=== PATIENT | male | born 1945 | race Caucasian/White ===

== ENCOUNTER 2016-08-02 15:52 | Inpatient (IN) ==
--- NOTE | 2016-08-02 16:08 | Emergency Department Note ---
Disposition Clinical Impression: DVT (deep venous thrombosis), Closed tibia fracture, Diabetes mellitus, Complete immobility due to severe physical disability or frailty Disposition: Admitted As Inpatient Condition: Fair Referrals: Unassigned,Provider [Non-Partnered Physician] - Forms: ED Satisfaction Letter Time of Disposition: 19:11 Fall HPI - General Chief Complaint: ED Fall Stated Complaint: Fall Time Seen by Provider: 08/02/16 15:55 Source: patient, EMS Mode of arrival: EMS Limitations: physical limitation Nursing Notes Reviewed: Yes Vital Signs Reviewed: Yes - History of Present Illness HPI Narrative: This is a 70-year-old male who had a fall out of bed a couple days ago. Patient states he injured his leg but he did not think it was broken so he did not come in. Patient is not a great historian but states he had no other injury. There is an obvious deformity to his left lower extremity with swelling present. Patient denies any head injury or loss of consciousness. Patient does not think he is on any blood thinners but he is not sure. Patient denies any neck or back pain. Patient's not sure how he fell out of bed. Patient states his niece lives with him but he has no other help at home. Pt Subjective Complaint: fall Onset (ago): day(s) (2) Fall From: out of bed Fall Witnessed: no Place Fall Occurred: home Loss of Consciousness: none Prolonged Down Time?: unclear - Related Data Home Medications Medication Instructions Recorded Confirmed Allopurinol [Zyloprim 300 MG] 300 mg PO DAILY 10/06/15 10/06/15 Cholecalciferol (Vitamin D3) 5,000 unit PO DAILY 10/06/15 10/06/15 [Vitamin D3] Citalopram [CeleXA] 20 mg PO HS 10/06/15 10/06/15 Furosemide [Lasix] 40 mg PO DAILY 10/06/15 10/06/15 Lisinopril [Zestril] 5 mg PO DAILY 10/06/15 10/06/15 Meclizine HCl [Verticalm] 25 mg PO DAILY 10/06/15 10/06/15 Potassium Chloride [K-Tab ER] 10 meq PO DAILY 10/06/15 10/06/15 Ranitidine HCl 150 mg PO BID 10/06/15 10/06/15 Simvastatin [Zocor] 40 mg PO HS 10/06/15 10/06/15 Alendronate Sodium [Fosamax] 08/02/16 Mupirocin Calcium [Bactroban] 15 gm TP 08/02/16 Pantoprazole Sodium [Protonix] 08/02/16 Previous Rx's Medication Instructions Recorded Clopidogrel Bisulfate [Plavix] 75 mg PO DAILY #30 tablet 10/08/15 Allergies Allergy/AdvReac Type Severity Reaction Status Date / Time morphine Allergy Rash Verified 08/02/16 16:55 Penicillins Allergy Rash Verified 10/06/15 19:04 All systems ED: reviewed and negative except as stated. Constitutional: Denies: fever, chills, weakness, weight change Eyes: Denies: eye pain, eye discharge, vision change ENT ED: Denies: ear pain, throat pain, dental pain, hearing loss, epistaxis, congestion, dysphagia Cardiovascular: Reports: edema (LLE). Denies: chest pain, palpitations, dyspnea on exertion, syncope Respiratory: Denies: cough, dyspnea, wheezes, hemoptysis, stridor Gastrointestinal: Denies: abdominal pain, nausea, vomiting, diarrhea, constipation, hematemesis, melena, hematochezia Genitourinary: Denies: urgency, dysuria, frequency, hematuria Musculoskeletal: Reports: arthralgia (LLE pain, swelling). Denies: back pain, neck pain, myalgia Integumentary: Reports: other (bruising to LLE). Denies: rash, abrasion, lesions Neurological: Denies: headache, weakness, numbness, paresthesias, confusion, abnormal gait, vertigo Psychiatric: Denies: anxiety, depression, suicidal thoughts, homicidal thoughts , auditory hallucinations, visual hallucinations Endocrine: Denies: fatigue Hematological/Lymphatic: Denies: easy bleeding, easy bruising Allergic/Immunologic: Denies: facial swelling, urticaria Fall PMH - Past Medical History Medical history: Reports: arthritis, COPD, diabetes, GERD, hyperlipidemia, hypertension, osteoporosis, other Surgical history: Reports: arthroscopy, knee replacement, orthopedic, other Psychiatric history: Reports: no psych history - Social History Smoking Status: Former smoker Alcohol use: Reports: none Drug use: Reports: none Physical Exam - General Limitations: physical limitation General appearance: alert, in no apparent distress, obese - Head Head exam: atraumatic, normocephalic, normal inspection - Eye Eye exam: Present: normal appearance, PERRL, EOMI - ENT ENT exam: normal exam, normal oropharynx, mucous membranes moist - Neck Neck exam: Present: normal inspection, full ROM, trachea midline. Absent: tenderness - Chest Chest inspection: Present: normal inspection, symmetric chest wall rise - Respiratory Respiratory exam: Present: normal lung sounds bilaterally - Cardiovascular Cardiovascular exam: Present: regular rate, normal rhythm, normal heart sounds - Abdominal Exam Abdominal exam: Present: soft, Non-Tender - Extremities Exam Extremities exam: Present: tenderness (LLE, with edema to that leg) - Expanded Lower Extremity Exam Lower leg exam: Present: tenderness (L), swelling (L), ecchymosis (L), deformity (L) Ankle exam: Present: tenderness (L), swelling (L) - Back Exam Back exam: Present: normal inspection, full ROM. Absent: tenderness - Neurological Exam Neurological exam: Present: alert, oriented X3 - Psychiatric Psychiatric exam: Present: normal affect, normal mood - Skin Skin exam: Present: warm, dry, intact, normal color, other (ecchymosis to L lower leg) Course - Consultations Consultation #1: I spoke with Dr. Eula reid to splint pt and admit to hospitalist jeanette with lovenox. Time: 18:56 Consultation #2: I spoke with Dr. West reid to admit. Time: 19:10 Vital Signs Temperature 98.5 F 08/02/16 15:54 Pulse Rate 99 08/02/16 15:54 Respiratory Rate 18 08/02/16 15:54 Blood Pressure 137/85 08/02/16 15:54 O2 Sat by Pulse Oximetry 95 08/02/16 15:54 Temperature 98.5 F 08/02/16 15:54 Pulse Rate 88 08/02/16 18:42 Respiratory Rate 16 08/02/16 18:42 Blood Pressure 150/107 08/02/16 18:42 O2 Sat by Pulse Oximetry 96 08/02/16 18:42 Oxygen Delivery Oxygen Delivery Room Air Fall - Medical Records Medical records reviewed: Yes I reviewed the patient's medical records. - Lab Data Lab results reviewed: Yes I reviewed the patient's lab results. Result diagrams: 08/02/16 16:58 08/02/16 16:58 Lab Results 08/02/16 08/02/16 08/02/16 Range/Units 16:58 16:58 16:58 WBC 7.9 (4.3-11.1) K/mcL RBC 4.17 L (4.19-5.50) M/mcL Hgb 13.0 (12.9-16.9) g/dL Hct 38.7 (37.5-50.1) % MCV 92.8 (83.0-100.0) fL MCH 31.2 (28.0-33.3) pg MCHC 33.6 (31.6-35.5) g/dL RDW 13.2 (11.5-14.5) % Plt Count 241 (140-400) K/mcL MPV 9.1 L (9.4-12.4) fL Immature Gran % 1.6 (0-4) % Seg Neutrophils % 69.6 % Lymphocytes % 18.0 % Monocytes % 8.7 % Eosinophils % 1.1 % Basophils % 1.0 % Neutrophils # 5.5 (1.6-8.9) K/mcL Lymphocytes # 1.4 (0.6-4.6) K/mcL Monocytes # 0.7 (0.0-1.3) K/mcL Eosinophils # 0.1 (0.0-0.6) K/mcL Basophils # 0.1 (0.0-0.2) K/mcL PT 12.7 H (9.4-12.1) Seconds INR 1.2 APTT 30.0 (26.0-36.0) Seconds Sodium 138 (136-145) mEq/L Potassium 3.0 L (3.5-4.5) mEq/L Chloride 99 (98-109) mEq/L Carbon Dioxide 31 H (19-29) mEq/L BUN 11 (8-26) mg/dL Creatinine 0.54 L (0.72-1.25) mg/dL Est GFR ( Amer) > 60 (> 60) Est GFR (Non-Af Amer) > 60 (> 60) BUN/Creatinine Ratio 20 (6-26) Glucose 223 H (70-99) mg/dL Calculated Osmolality 292 (280-300) Calcium 8.2 L (8.6-10.8) mg/dL Total Bilirubin 1.3 H (0.2-1.2) mg/dL Direct Bilirubin 0.7 H (0.0-0.5) mg/dL Indirect Bilirubin 0.6 (0.0-1.2) mg/dL AST 11 (5-34) Units/L ALT 8 (0-55) Units/L Alkaline Phosphatase 78 (38-126) Units/L Creatine Kinase (30-200) Units/L Troponin I (0-0.03) ng/mL B-Natriuretic Peptide (0-100) pg/mL Serum Total Protein 6.5 (6.0-8.3) g/dL Albumin 2.5 L (3.5-5.0) g/dL Globulin 4.0 H (2.4-3.5) g/dL Albumin/Globulin Ratio 0.6 L (1.1-2.2) TSH (0.350-4.840) mcIU/mL 08/02/16 08/02/16 08/02/16 Range/Units 16:58 16:58 16:58 WBC (4.3-11.1) K/mcL RBC (4.19-5.50) M/mcL Hgb (12.9-16.9) g/dL Hct (37.5-50.1) % MCV (83.0-100.0) fL MCH (28.0-33.3) pg MCHC (31.6-35.5) g/dL RDW (11.5-14.5) % Plt Count (140-400) K/mcL MPV (9.4-12.4) fL Immature Gran % (0-4) % Seg Neutrophils % % Lymphocytes % % Monocytes % % Eosinophils % % Basophils % % Neutrophils # (1.6-8.9) K/mcL Lymphocytes # (0.6-4.6) K/mcL Monocytes # (0.0-1.3) K/mcL Eosinophils # (0.0-0.6) K/mcL Basophils # (0.0-0.2) K/mcL PT (9.4-12.1) Seconds INR APTT (26.0-36.0) Seconds Sodium (136-145) mEq/L Potassium (3.5-4.5) mEq/L Chloride (98-109) mEq/L Carbon Dioxide (19-29) mEq/L BUN (8-26) mg/dL Creatinine (0.72-1.25) mg/dL Est GFR ( Amer) (> 60) Est GFR (Non-Af Amer) (> 60) BUN/Creatinine Ratio (6-26) Glucose (70-99) mg/dL Calculated Osmolality (280-300) Calcium (8.6-10.8) mg/dL Total Bilirubin (0.2-1.2) mg/dL Direct Bilirubin (0.0-0.5) mg/dL Indirect Bilirubin (0.0-1.2) mg/dL AST (5-34) Units/L ALT (0-55) Units/L Alkaline Phosphatase (38-126) Units/L Creatine Kinase 20 L (30-200) Units/L Troponin I 0.00 (0-0.03) ng/mL B-Natriuretic Peptide 17 (0-100) pg/mL Serum Total Protein (6.0-8.3) g/dL Albumin (3.5-5.0) g/dL Globulin (2.4-3.5) g/dL Albumin/Globulin Ratio (1.1-2.2) TSH 0.886 (0.350-4.840) mcIU/mL - Radiology Data Radiology results reviewed: Yes I reviewed the patient's radiology results. - EKG Data EKG attestation: Yes I reviewed and interpreted this EKG. EKG shows normal: sinus rhythm Rate: normal Rhythm: NSR [place]/QRS: normal Interpretation: nonspecific ST-T wave changes
[2016-08-02 17:19] LABS: Basophils # 0.1 K/mcL (0.0-0.2); Eosinophils # 0.1 K/mcL (0.0-0.6); Eosinophils % 1.1 %; Hematocrit 38.7 % (37.5-50.1); Immature Granulocytes % 1.6 % (0-4); Lymphocytes # 1.4 K/mcL (0.6-4.6); Mean Corpuscular HGB Conc 33.6 g/dL (31.6-35.5); Mean Corpuscular Hemoglobin 31.2 pg (28.0-33.3); Mean Corpuscular Volume 92.8 fL (83.0-100.0); Mean Platelet Volume 9.1 fL (9.4-12.4); Monocytes # 0.7 K/mcL (0.0-1.3); Monocytes % 8.7 %; Neutrophils # 5.5 K/mcL (1.6-8.9); Platelet Count 241 K/mcL (140-400); Red Blood Count 4.17 M/mcL (4.19-5.50); Red Cell Distribution Width 13.2 % (11.5-14.5); Segmented Neutrophils % 69.6 %
[2016-08-02 17:28] LABS: INR 1.2; Prothrombin Time 12.7 Seconds (9.4-12.1)
[2016-08-02 17:36] LABS: Alanine Aminotransferase 8 Units/L (0-55); Albumin 2.5 g/dL (3.5-5.0); Albumin/Globulin Ratio 0.6 (1.1-2.2); Alkaline Phosphatase 78 Units/L (38-126); Aspartate Amino Transferase 11 Units/L (5-34); BUN/Creatinine Ratio 20 (6-26); Bilirubin,Direct 0.7 mg/dL (0.0-0.5); Bilirubin,Indirect 0.6 mg/dL (0.0-1.2); Bilirubin,Total 1.3 mg/dL (0.2-1.2); Blood Urea Nitrogen 11 mg/dL (8-26); Calcium 8.2 mg/dL (8.6-10.8); Carbon Dioxide 31 mEq/L (19-29); Chloride 99 mEq/L (98-109); Glucose 223 mg/dL (70-99); Osmolality,Calculated 292 (280-300); Sodium 138 mEq/L (136-145); Total Protein 6.5 g/dL (6.0-8.3); eGFR For African Americans > 60 (> 60); eGFR For Non-African Americans > 60 (> 60)
[2016-08-02 17:57] LABS: Thyroid Stimulating Hormone 0.886 mcIU/mL (0.350-4.840)
[2016-08-02] MEDS ORDERED: *HR* Enoxaparin 150 MG/ML SYRINGE SQ STA (18:54)
[2016-08-02] MEDS ORDERED: Naloxone 0.4 MG/ML INJ IVP PRN (19:10)
[2016-08-02] MEDS ORDERED: Ondansetron 4 MG/2 ML VIAL IVP PRN (19:10)
[2016-08-02] MEDS ORDERED: *HR* HYDROcodone/Acet 5/325 mg TABLET PO PRN (19:10)
[2016-08-02] MEDS ORDERED: Dextrose Gel 15 GM PO PRN ×2 (19:12)
[2016-08-02] MEDS ORDERED: D5% in Water 1,000 ML IV PRN (19:12)
[2016-08-02] MEDS ORDERED: *HR* Dextrose 50 % in Water (Syg) 50 ML SYRINGE IVP PRN (19:12)
--- NOTE | 2016-08-02 21:29 | Internal Med History&Physical ---
Date of Encounter: 08/02/16 Time of Encounter: 21:17 Assessment and Plan (1) Closed tibia fracture Current visit: Yes Status: Acute XRay showed mildly displaced and comminuted transverse fracture through the distal diaphysis Splinted. Pain control with Tylenol and [place]. Narcan when necessary for respiratory depression Dr. Forde of orthopedics consulted and will see patient tomorrow. Patient morbidly obese, with HTN, HLD, type 2 diabetes, acute DVT. He is a moderate risk for pulmonary and cardiac event perioperatively. Qualifiers: Encounter type: initial encounter Tibia location: shaft Fracture morphology: comminuted Fracture alignment: displaced Laterality: left Qualified Code(s): S82.252A - Displaced comminuted fracture of shaft of left tibia, initial encounter for closed fracture (2) DVT (deep venous thrombosis) Current visit: Yes Status: Acute Lovenox 140mg SQ given, continue [id number]. Patient for potential surgery tomorrow for fractured tibia. Will need chronic anticoagulation Qualifiers: DVT location: lower extremity Affected thrombotic vein of extremity: popliteal Laterality: left Chronicity: acute Qualified Code(s): I82.432 - Acute embolism and thrombosis of left popliteal vein (3) Type 2 diabetes mellitus Current visit: Yes Status: Acute diabetic diet check blood glucose ACHS sliding scale correction dose insulin ACHS hypoglycemic protocol Qualifiers: Diabetes mellitus complication status: without complication Diabetes mellitus penitentiary insulin use: without intermodal truck driver use Qualified Code(s): E11.9 - Type 2 diabetes mellitus without complications (4) 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 Assistance from his niece. Now with left tibial fracture. PT/OT and social work consults (5) Hypokalemia Current visit: Yes Status: Acute potassium of 3.0 Patient on lasix 40mg daily and potassium supplement of 10mEq at home. ED gave 40mEq of PO potassium. Will increase his dose to 20mEq daily Recheck BMP in the morning. (6) Hypertension Current visit: No Status: Chronic continue home dose of lasix and lisinopril Qualifiers: Hypertension type: essential hypertension Qualified Code(s): I10 - Essential (primary) hypertension (7) Obesity (BMI 30-39.9) Current visit: No Status: Chronic Internal Medicine - H&P: HPI Chief complaint: Left leg pain Admitted From: Emergency Dept Plans for Post Hospital Care: Home History of present illness: Mr. Burch is a 70 year old male with history of hypertension, hyperlipidemia , type 2 diabetes, TIA, and left knee replacement who presented to the ED today with pain in his left leg after rolling out of bed 2 days ago. He is not believe his leg was broken which is why he did not come until today. He describes the pain as dull, throbbing, it has stays about the same since his fall. He does not ambulate at baseline uses a wheelchair and a lift chair per patient. He lives with his niece whose assists him. He denies hitting his head, however this ED did get a head CT which showed no acute intracranial abnormality. X-ray of the left leg showed mildly displaced and comminuted transverse fracture through the distal diaphysis of the tibia. Lower extremity Doppler revealed S superficial femoral vein and popliteal vein with acute thrombus. Evaluation was also significant for hypokalemia with potassium of 3.0 , and hyperglycemia with blood sugar of 223. Dr. Dunbar of orthopedics was consult to. Full dose Lovenox was administered for DVT. An oral potassium was given for hypokalemia. On exam the patient is resting comfortably alert and oriented 3 lungs sound clear bilaterally, heart with regular rate and rhythm. Left lower extremity splinted, sensation intact, capilary refill normal. The patients case was discussed with Dr. Armas and he agrees with the assessment and plan set forth. Past Med Surg Social Fam HX - Past Medical History Medical history: arthritis, cancer (prostate Cancer s/p radiation), COPD, diabetes, GERD, hyperlipidemia, hypertension, osteoporosis, TIA, other Psychiatric history: no psych history - Past Surgical History Surgical History: arthroscopy, knee replacement, orthopedic, other - Social History Smoking Status: Former smoker Smokeless Tobacco Status: No Alcohol use: none Drug use: none - Family History Mother Living Status: Hx Family Cardiac Disorders: Yes Hx Family Endocrine Disorder: Yes Hx Family Neurologic Disorders: Yes (TIA) Father Living Status: Hx Family Cardiac Disorders: Yes Sister Hx Family Cardiac Disorders: Yes (triple bypass) Hx Family Endocrine Disorder: Yes Hx Family Neurologic Disorders: Yes (CVA) Brother Living Status: Hx Family Cancer: Yes (Lung cancer) Internal Medicine - H&P: Meds Allopurinol [Zyloprim 300 MG] 300 mg PO DAILY 10/06/15 [History] Cholecalciferol (Vitamin D3) [Vitamin D3] 5,000 unit PO DAILY 10/06/15 [History] Citalopram [CeleXA] 20 mg PO HS 10/06/15 [History] Furosemide [Lasix] 40 mg PO DAILY 10/06/15 [History] Lisinopril [Zestril] 5 mg PO DAILY 10/06/15 [History] Meclizine HCl [Verticalm] 25 mg PO DAILY 10/06/15 [History] Potassium Chloride [K-Tab ER] 10 meq PO DAILY 10/06/15 [History] Ranitidine HCl 150 mg PO BID 10/06/15 [History] Simvastatin [Zocor] 40 mg PO HS 10/06/15 [History] Clopidogrel Bisulfate [Plavix] 75 mg PO DAILY #30 tablet 10/08/15 [Rx] Alendronate Sodium [Fosamax] 08/02/16 [History] Mupirocin Calcium [Bactroban] 15 gm TP 08/02/16 [History] Pantoprazole Sodium [Protonix] 08/02/16 [History] Allergies morphine Allergy (Verified 08/02/16 16:55) Rash Penicillins Allergy (Verified 10/06/15 19:04) Rash All Systems PM: A 10-system review of systems was performed and is negative for pertinent findings except as documented above in the HPI. - Constitutional Constitutional: no chills, no fever(s), no night sweats - EENT Eyes: no change in vision, no discharge, no pain, no photophobia Nose, mouth and throat: no dysphagia, no nasal discharge, no neck pain, no sore throat - Cardiovascular Cardiovascular ROS IM: no chest pain, no diaphoresis, no dyspnea, no lightheadedness, no palpitations, no syncope - Respiratory Respiratory: no cough, no dyspnea, no wheezing, no excessive phlegm production - Gastrointestinal Gastrointestinal: diarrhea (patient reports chronic diarrhea), no abdominal pain , no hematemesis, no hematochezia, no melena, no nausea, no vomiting - Musculoskeletal Musculoskeletal ROS IM: joint swelling (left knee and ankle), limited range of motion, no numbness, no tingling - Integumentary Integumentary IM: no rash, no unusual bruising - Neurological Neurological ROS: no confusion, no convulsions, no focal weakness, no numbness, no tingling, no tremor(s) - Hematologic/Lymphatic Hematologic/Lymphatic: no easy bruising - Constitutional Vitals: Temp Pulse Resp BP Pulse Ox 98.5 F 82 16 121/78 94 L 08/02/16 20:36 08/02/16 20:25 08/02/16 20:36 08/02/16 20:36 08/02/16 20:25 General appearance: Present: A&O X 3, morbidly obese, no acute distress - Head Head exam: Present: atraumatic, normocephalic - Eye Eye exam: Present: PERRL, conjuntiva pink, sclera anicteric Pupils: Present: PERRL - Neck Neck exam general surgery: Present: supple, trachea midline. Absent: lymphadenopathy - Respiratory Respiratory exam: Present: CTAB. Absent: accessory muscle use, rales, rhonchi, wheezes - Cardiovascular Cardiovascular exam: Present: RRR, +S1, +S2. Absent: diastolic murmur, gallop, rubs, systolic murmur - GI/Abdominal GI/Abdominal exam: Present: normal bowel sounds, soft, no peritoneal signs. Absent: distended, tenderness - Extremities Exam Extremities exam: Present: joint swelling (left knee and ankle), normal capillary refill, tenderness (left lower leg), warm, radial pulses palpable and symetrical. Absent: calf tenderness, cyanotic, pedal edema - Expanded Lower Extremities Exam Lower Leg exam: Present: deformity, ecchymosis, swelling, tenderness. Absent: full ROM Ankle exam: Present: ecchymosis, swelling, tenderness - Neurological Exam Neurological exam: Present: CN II-XII intact, oriented X3, no focal deficits. Absent: facial droop, speech deficit - Skin Skin exam: Present: dry, intact (except for skin tear on LUE) Internal Med - H&P Results - Labs CBC & Chem 7: 08/02/16 16:58 08/02/16 16:58
[2016-08-02] MEDS: Insulin LISPRO 300 UNITS/3 ML VIAL SQ SCH (22:40)
[2016-08-03 04:29] LABS: Bilirubin,Urine Small (Negative); Clarity,Urine Clear (Clear); Color,Urine Dark Yellow (Yellow); Glucose,Urine (UA) Normal (Normal); Ketones,Urine Negative (Negative); Specific Gravity,Urine 1.019 (1.010-1.025)
[2016-08-03 04:30] LABS: Blood,Urine Negative (Negative); Leukocyte Esterase,Urine Trace (Negative); Nitrite,Urine Negative (Negative); Protein,Urine Negative (Neg-Trace)
[2016-08-03 04:38] LABS: Bacteria,Urine Few per hpf (None-Few); WBC,Urine 0-3 per hpf (0-3)
[2016-08-03 04:55] LABS: Sodium 141 mEq/L (136-145)
[2016-08-03 04:56] LABS: Alanine Aminotransferase 6 Units/L (0-55); Albumin 2.4 g/dL (3.5-5.0); Albumin/Globulin Ratio 0.6 (1.1-2.2); Alkaline Phosphatase 69 Units/L (38-126); Aspartate Amino Transferase 12 Units/L (5-34); BUN/Creatinine Ratio 21 (6-26); Bilirubin,Total 1.3 mg/dL (0.2-1.2); Blood Urea Nitrogen 11 mg/dL (8-26); Calcium 8.4 mg/dL (8.6-10.8); Carbon Dioxide 31 mEq/L (19-29); Chloride 102 mEq/L (98-109); Globulin 3.7 g/dL (2.4-3.5); Glucose 150 mg/dL (70-99); Osmolality,Calculated 294 (280-300); Potassium 3.4 mEq/L (3.5-4.5); Total Protein 6.1 g/dL (6.0-8.3); eGFR For African Americans > 60 (> 60); eGFR For Non-African Americans > 60 (> 60)
[2016-08-03 05:04] LABS: Eosinophils # 0.1 K/mcL (0.0-0.6); Eosinophils % 1.9 %; Hematocrit 36.5 % (37.5-50.1); Hemoglobin 12.2 g/dL (12.9-16.9); Immature Granulocytes % 1.1 % (0-4); Lymphocytes # 1.5 K/mcL (0.6-4.6); Mean Corpuscular HGB Conc 33.4 g/dL (31.6-35.5); Mean Corpuscular Hemoglobin 31.4 pg (28.0-33.3); Mean Corpuscular Volume 94.1 fL (83.0-100.0); Mean Platelet Volume 9.5 fL (9.4-12.4); Monocytes # 0.8 K/mcL (0.0-1.3); Neutrophils # 4.4 K/mcL (1.6-8.9); Platelet Count 251 K/mcL (140-400); Red Blood Count 3.88 M/mcL (4.19-5.50); Red Cell Distribution Width 13.2 % (11.5-14.5); Segmented Neutrophils % 63.1 %
[2016-08-03 05:05] LABS: Basophils # 0.1 K/mcL (0.0-0.2); Basophils % 0.9 %
[2016-08-03] MEDS: *HR* Enoxaparin 150 MG/ML SYRINGE SQ SCH ×2 (05:53→17:09)
--- NOTE | 2016-08-03 07:39 | Orthopedic Consult Note ---
Date of Encounter: 08/03/16 Time of Encounter: 07:37 Assessment and Plan (1) Closed tibia fracture Current Visit: Yes Status: Blaise Arguello is a 70-year-old multiply medically comorbid male with a low-energy fall resulting in a minimally angulated distal tibial shaft fracture in the face of severe osteopenia as well as an acute DVT. My recommendation for the tibia fracture is for nonoperative management in the form of immobilization and nonweightbearing. He does not have a splint on at this point, and we will place one later today. He will require serial radiographic follow-up's. He can mobilize with therapy and get up to a chair when medically stable. DVT treatment per the hospitalist. Qualifiers: Encounter type: initial encounter Tibia location: shaft Fracture morphology: comminuted Fracture alignment: displaced Laterality: left Qualified Code(s): S82.252A - Displaced comminuted fracture of shaft of left tibia, initial encounter for closed fracture History of Present Illness HPI: Mr. Burch is a 70 year multiply medically comorbid male. He was admitted last night to the hospitalist after a fall from his bed. He sustained a distal tibial shaft fracture. I was consult to assist in the management of the patient. My evaluation this morning he is complaining of pain about a 3 out of 10 to the left distal calderón region. It is worse with movement. He denies any numbness or tingling or any other pain. He denies any headaches, neck pain, chest pain, abdominal pain, bilateral upper extremity pain, and right lower extremity pain. The patient indicates that he has been nonambulatory for the last 3 years after a left total knee replacement. He said that he never did any physical therapy afterwards and the knee fell into disuse. He lives at home with his niece and mostly sits in the chair. The patient denies any other associated signs or symptoms or modifying factors. Past Med Surg Social Fam HX - Past Medical History Medical history: arthritis, cancer (prostate Cancer s/p radiation), COPD, diabetes, GERD, hyperlipidemia, hypertension, osteoporosis, TIA, other Psychiatric history: no psych history - Past Surgical History Surgical History: arthroscopy, knee replacement, orthopedic, other - Social History Smoking Status: Former smoker Smokeless Tobacco Status: No Alcohol use: none Drug use: none - Family History Mother History Unknown: Yes Living Status: Hx Family Cardiac Disorders: Yes Hx Family Endocrine Disorder: Yes Hx Family Neurologic Disorders: Yes (TIA) Father History Unknown: Yes Living Status: Hx Family Cardiac Disorders: Yes Sister History Unknown: Yes Hx Family Cardiac Disorders: Yes (triple bypass) Hx Family Endocrine Disorder: Yes Hx Family Neurologic Disorders: Yes (CVA) Brother History Unknown: Yes Living Status: Hx Family Cancer: Yes (Lung cancer) Medications and Allergies Allopurinol [Zyloprim 300 MG] 300 mg PO DAILY 10/06/15 [History] Cholecalciferol (Vitamin D3) [Vitamin D3] 5,000 unit PO DAILY 10/06/15 [History] Citalopram [CeleXA] 20 mg PO HS 10/06/15 [History] Furosemide [Lasix] 40 mg PO DAILY 10/06/15 [History] Lisinopril [Zestril] 5 mg PO DAILY 10/06/15 [History] Meclizine HCl [Verticalm] 25 mg PO DAILY 10/06/15 [History] Potassium Chloride [K-Tab ER] 10 meq PO DAILY 10/06/15 [History] Ranitidine HCl 150 mg PO BID 10/06/15 [History] Simvastatin [Zocor] 40 mg PO HS 10/06/15 [History] Clopidogrel Bisulfate [Plavix] 75 mg PO DAILY #30 tablet 10/08/15 [Rx] Alendronate Sodium [Fosamax] 08/02/16 [History] Mupirocin Calcium [Bactroban] 15 gm TP 08/02/16 [History] Pantoprazole Sodium [Protonix] 08/02/16 [History] Allergies morphine Allergy (Verified 08/02/16 16:55) Rash Penicillins Allergy (Verified 10/06/15 19:04) Rash All Systems Reviewed: Constitutional and musculoskeletal systems were reviewed and are negative unless otherwise stated in history of present illness. Physical Exam - Constitutional Vitals: Temp Pulse Resp BP Pulse Ox 97.6 F 84 16 121/78 94 L 08/03/16 07:01 08/03/16 07:01 08/03/16 07:01 08/03/16 07:01 08/03/16 07:01 Constitutional -Vitals reviewed -The patient is well developed and well nourished. -Mood is pleasant. Psychiatric -The patient is fully alert and oriented x 3. Respiratory: -Respiratory effort normal Abdomen: -Soft abdomen -Non tender -Non distended: Left upper extremity: -No deformities. The overlying skin is intact. Chronic ecchymotic lesions. -No tenderness to palpation throughout. -No significant pain with passive motion of the shoulder, elbow, wrist, and fingers within the limits of the bed. -Able to make an "OK" sign, cross the index and long fingers, and extend the thumb. -Sensation grossly intact to light touch throughout the median, radial, and ulnar distributions. -Radial pulse is present; Fingers have good capillary refill. Right upper extremity: -No deformities. The overlying skin is intact. Chronic ecchymotic lesions. -No tenderness to palpation throughout. -No significant pain with passive motion of the shoulder, elbow, wrist, and fingers within the limits of the bed. -Able to make an "OK" sign, cross the index and long fingers, and extend the thumb. -Sensation grossly intact to light touch throughout the median, radial, and ulnar distributions. -Radial pulse is present; Fingers have good capillary refill. Left lower extremity: -No deformities. The overlying skin is intact. There is a large patch of ecchymosis and distal tibial region. No fracture blisters. -Tenderness to palpation at the distal calderón region. No other tenderness to palpation. -I can gently range the hip without symptoms. The knee is quite stiff. I did not range the ankle given his known fracture. -No pain with axial loading of the thigh. -Able to dorsiflex and plantarflex the toes. -Sensation is grossly intact to light touch throughout the sural, saphenous, superficial peroneal, and deep peroneal distributions. -Toes have good capillary refill. Right lower extremity: -No deformities. The overlying skin is intact. No obvious signs of acute trauma. -No tenderness to palpation throughout. -No pain with passive motion of the hip, knee, ankle, and toes within the limits of the bed. -No pain with axial loading of the thigh. -Able to dorsiflex and plantarflex the ankle and toes. -Sensation is grossly intact to light touch throughout the sural, saphenous, superficial peroneal, and deep peroneal distributions. -Toes have good capillary refill. Results - Labs Result Diagrams: 08/03/16 03:56 08/03/16 03:56 Labs: Abnormal lab results RBC 3.88 M/mcL (4.19-5.50) L 08/03/16 03:56 Hgb 12.2 g/dL (12.9-16.9) L 08/03/16 03:56 Hct 36.5 % (37.5-50.1) L 08/03/16 03:56 PT 12.7 Seconds (9.4-12.1) H 08/02/16 16:58 APTT 37.4 Seconds (26.0-36.0) H 08/03/16 03:56 Potassium 3.4 mEq/L (3.5-4.5) L 08/03/16 03:56 Carbon Dioxide 31 mEq/L (19-29) H 08/03/16 03:56 Creatinine 0.52 mg/dL (0.72-1.25) L 08/03/16 03:56 Glucose 150 mg/dL (70-99) H 08/03/16 03:56 Calcium 8.4 mg/dL (8.6-10.8) L 08/03/16 03:56 Total Bilirubin 1.3 mg/dL (0.2-1.2) H 08/03/16 03:56 Direct Bilirubin 0.7 mg/dL (0.0-0.5) H 08/02/16 16:58 Creatine Kinase 20 Units/L (30-200) L 08/02/16 16:58 Albumin 2.4 g/dL (3.5-5.0) L 08/03/16 03:56 Globulin 3.7 g/dL (2.4-3.5) H 08/03/16 03:56 Albumin/Globulin Ratio 0.6 (1.1-2.2) L 08/03/16 03:56 Urine Bilirubin Small (Negative) H 08/03/16 04:05 Urine Urobilinogen 2.0 mg/dL (Normal) H 08/03/16 04:05 Ur Leukocyte Esterase Trace (Negative) H 08/03/16 04:05 Ur Culture Indicated? YES (NO) A 08/03/16 04:05 H & H 08/03/16 Range/Units 03:56 Hgb 12.2 L (12.9-16.9) g/dL Hct 36.5 L (37.5-50.1) % All other labs normal. - Diagnostic results Knee x-ray: image reviewed (Stable left total knee arthroplasty) Ankle/Foot x-ray: image reviewed (Ankle and tib-fib x-rays show a minimally angulated distal shaft fracture with severe osteopenia.) Consult Discharge Plan - Plan Referrals: Saman Garg MD [Primary Care Provider] -
[2016-08-03] MEDS: Insulin LISPRO 300 UNITS/3 ML VIAL SQ SCH ×4 (08:58→20:33)
[2016-08-03] MEDS: Acetaminophen 325 MG TABLET PO PRN (09:04)
[2016-08-03] MEDS: Furosemide 40 MG TABLET PO SCH (09:05)
[2016-08-03] MEDS: Cholecalciferol (D-3) 1,000 UNIT TABLET PO SCH (09:05)
[2016-08-03] MEDS ORDERED: Potassium Chloride Elixir 20 MEQ/15 ML UDC PO ONE (10:08)
--- NOTE | 2016-08-03 14:39 | Electrocardiograph Report ---
[facility] Test Date: 2016-08-02 Pat Name: Jos Burch Department: 104 Room: [facility] Gender: M American Sign Language Interpreter: LINETTE : 1945 Requested By: Gold Graff Order Number: [id number] Reading MD: Noman Robles MD Measurements Intervals Nikolai Rate: 96 P: 29 MS: 142 QRS: 42 QRSD: 100 T: 48 QT: 358 QTc: 411 Interpretive Statements SINUS RHYTHM WITH OCCASIONAL SUPRAVENTRICULAR PREMATURE COMPLEXES NONSPECIFIC ST \T\ T-WAVE ABNORMALITY Electronically Signed On 08-03-16 14:38:06 EST by Noman Robles MD
--- NOTE | 2016-08-03 16:10 | Internal Med Progress Note ---
Date of Encounter: 08/03/16 Time of Encounter: 10:40 - Assessment and plan (1) Closed tibia fracture Current Visit: Yes Status: Acute Assessment and plan: S/P cast , Knee support , Qualifiers: Encounter type: initial encounter Tibia location: shaft Fracture morphology: comminuted Fracture alignment: displaced Laterality: left Qualified Code(s): S82.252A - Displaced comminuted fracture of shaft of left tibia, initial encounter for closed fracture (2) DVT (deep venous thrombosis) Current Visit: Yes Status: Acute Assessment and plan: Left popliteal vein DVT will add xarelto discontinue Lovenox discussed with pharmacy Qualifiers: DVT location: lower extremity Affected thrombotic vein of extremity: popliteal Laterality: left Chronicity: acute Qualified Code(s): I82.432 - Acute embolism and thrombosis of left popliteal vein (3) Hypokalemia Current Visit: Yes Status: Acute Assessment and plan: replace , recheck (4) Type 2 diabetes mellitus Current Visit: Yes Status: Acute Assessment and plan: ISS Qualifiers: Diabetes mellitus complication status: without complication Diabetes mellitus intermission coordinator insulin use: without intermission coordinator use Qualified Code(s): E11.9 - Type 2 diabetes mellitus without complications - Subjective Interval history: patient seen and examined. Patient denies any shortness of breath. Patient denies any chest pain. He denies any dysuria or change in his bowel movement. He still complain of sever left lower extremity pain. - Constitutional Vitals: Temp Pulse Resp BP Pulse Ox 98.1 F 81 16 107/69 97 08/03/16 15:32 08/03/16 15:32 08/03/16 15:32 08/03/16 15:32 08/03/16 15:32 General appearance: Present: A&O X 3, morbidly obese, no acute distress - Head Head exam: Present: atraumatic, normocephalic - Respiratory Respiratory exam: Present: CTAB. Absent: accessory muscle use, rales, rhonchi, wheezes - Cardiovascular Cardiovascular exam: Present: RRR, +S1, +S2. Absent: diastolic murmur, gallop, rubs, systolic murmur - GI/Abdominal GI/Abdominal exam: Present: normal bowel sounds, soft, no peritoneal signs. Absent: distended, tenderness - Extremities Exam Extremities exam: Present: calf tenderness, pedal edema (+2 edema left lower extremities), warm, radial pulses palpable and symetrical. Absent: cyanotic Internal Medicine: Result - Labs CBC & Chem 7: 08/03/16 03:56 08/03/16 03:56 Labs: Short CBC 08/03/16 Range/Units 03:56 WBC 7.0 (4.3-11.1) K/mcL Hgb 12.2 L (12.9-16.9) g/dL Hct 36.5 L (37.5-50.1) % Plt Count 251 (140-400) K/mcL Neutrophils # 4.4 (1.6-8.9) K/mcL BMP 08/03/16 03:56 Sodium 141 Potassium 3.4 L Chloride 102 Carbon Dioxide 31 H BUN 11 Creatinine 0.52 L Glucose 150 H Calcium 8.4 L Liver Function 08/03/16 Range/Units 03:56 Total Bilirubin 1.3 H (0.2-1.2) mg/dL AST 12 (5-34) Units/L ALT 6 (0-55) Units/L Alkaline Phosphatase 69 (38-126) Units/L Albumin 2.4 L (3.5-5.0) g/dL Urine 08/03/16 Range/Units 04:05 Urine Color Dark Yellow (Yellow) Urine Clarity Clear (Clear) Urine pH 6.0 (5.0-8.0) pH Units Ur Specific [place] 1.019 (1.010-1.025) Urine Protein Negative (Neg-Trace) mg/dL Urine Glucose (UA) Normal (Normal) mg/dL - ABG Interpretation ABG results: PT/INR, D-dimer PT 12.7 Seconds (9.4-12.1) H 08/02/16 16:58 - Impressions Impressions Chest X-Ray 08/02/16 16:05 IMPRESSION: Widened superior mediastinum and nonspecific right perihilar and lower lobe opacities which are stable. No new process. Consult Discharge Plan - Plan Additional Instructions: Possible discharge next a.m. awaiting for physical therapy . To assess home safety patient refused rehabilitation. Referrals: Saman Garg MD [Primary Care Provider] -
--- NOTE | 2016-08-03 17:10 | Venous Imaging Report ---
LE Venous Duplex Patient Name:Jos Burch Order Number:[id number] Procedure Date:08/02/2016 Date:5Age:70 yrs Gender:Male Location:[facility] ED Room #: Dining Room Cashier:Hanny Clark RVT, KIMBER Referring MD:Gold Graff DO billing spec:None Reading MD:Itz Hoang MD Primary Indications:fall Secondary Indications: Risk Factors Yes/No Hx of DVT No Anticoagulants Yes Impressions: Acute deep venous thrombosisis present in the left superficial femoral and popliteal veins. Normal left lower extremity superficial venous exam. Normal contralateral common femoral vein. Recommendations: Test completed on 08/02/2016 at 6:32:12 pm. Critical findings reported to Dr. Graff in person at 6:32:25 pm on 08/02/2016 by Hanny Clark RVT, RDCS. Findings Venous Duplex Results: Right: Venous imaging of the lower extremity reveals full patency and normal vessel compressibility of the right common femoral. Doppler signals in the evaluated veins were normal. Left: Venous imaging of the lower extremity reveals full patency and normal vessel compressibility of the left distal iliac, left common femoral, left saphenofemoral junction, left great saphenous and left lesser saphenous. Doppler signals in the evaluated veins were normal. There is an acute occlusive thrombus seen in the left superficial femoral. It demonstrates an incompressible vein. Flow was absent and it did not augment. There is an acute occlusive thrombus seen in the left popliteal. It demonstrates an incompressible vein. Flow was absent and it did not augment. Lower Extremity Venous Duplex Side Vein Compress Spontaneous Flow Augment Diameter (cm) Depth (cm) Left Distal Iliac Normal Yes Phasic Yes Left Common Femoral Normal Yes Phasic Yes Left Superficial Femoral None no Absent no Left Popliteal None no Absent no Left Saphenofemoral Junction Normal Yes Phasic Yes Left Great Saphenous Normal Yes Phasic Yes Left Lesser Saphenous Normal Yes Phasic Yes Right Common Femoral Normal Yes Phasic Yes Updated by Itz Hoang MD on 08/03/2016 5:06:24 PM electronically signed on 08/03/2016 5:06:39 PM with status of Final
[2016-08-03] MEDS: *HR* OxyCODONE/APAP 5/325 TABLET PO PRN (20:30)
[2016-08-04] MEDS: *HR* OxyCODONE/APAP 5/325 TABLET PO PRN ×3 (00:49→16:35)
[2016-08-04] MEDS: *HR* Rivaroxaban 15 MG TABLET PO SCH ×3 (05:47→19:48)
[2016-08-04] MEDS: Insulin LISPRO 300 UNITS/3 ML VIAL SQ SCH ×4 (07:38→19:55)
[2016-08-04] MEDS: Cholecalciferol (D-3) 1,000 UNIT TABLET PO SCH (07:48)
[2016-08-04] MEDS: Furosemide 40 MG TABLET PO SCH (07:49)
--- NOTE | 2016-08-04 08:00 | Orthopedics Progress Note ---
Date of Encounter: 08/04/16 Time of Encounter: 07:57 - Assessment and Plan (1) Closed tibia fracture Current Visit: Yes Status: Acute Qualifiers: Encounter type: initial encounter Tibia location: shaft Fracture morphology: comminuted Fracture alignment: displaced Laterality: left Qualified Code(s): S82.252A - Displaced comminuted fracture of shaft of left tibia, initial encounter for closed fracture Subjective Interval history: Pain in better control this morning after being switched to Percocet. No new complaints. Afebrile, vitals stable. Left leg: -Knee immobilizer and shortl eg splint in place. -He can flex and extend the toes. -The toes are senate and well perfused Impression: -Left tibia fracture -DVT Plan: -NWB LLE -Physical therapy -Splint and knee immobilizer for tibia fx; Plan on non op management -Follow up with me in the office in 1 week for a repeat set of x-rays -DVT managment per primary team -Orthopedically stable for discharge. Objective Vital signs: Vital Signs Temp Pulse Resp BP Pulse Ox 08/04/16 06:56 98.3 F 74 18 111/71 93 L 08/04/16 03:33 99 F 86 14 103/66 93 L 08/03/16 23:43 98.4 F 85 17 106/66 90 L 08/03/16 21:00 99.1 F 79 17 109/51 95 08/03/16 20:11 99.1 F 79 17 109/51 95 08/03/16 15:32 98.1 F 81 16 107/69 97 08/03/16 11:45 97.6 F 76 18 108/66 94 L Intake and Output 08/03/16 08/03/16 08/04/16 15:59 23:59 07:59 Intake Total 360 / 360 Output Total 50 / 50 350 / 350 Balance -50 / -50 Intake: Oral 360 / 360 Output: Urine 50 / 50 350 / 350 Other: Meal Dinner Percent of Meal Consumed 100% # Voids 1 Blood Glucose* 150 192 135 - Labs CBC & BMP: 08/03/16 03:56 08/03/16 03:56 Labs: Abnormal lab results RBC 3.88 M/mcL (4.19-5.50) L 08/03/16 03:56 Hgb 12.2 g/dL (12.9-16.9) L 08/03/16 03:56 Hct 36.5 % (37.5-50.1) L 08/03/16 03:56 PT 12.7 Seconds (9.4-12.1) H 08/02/16 16:58 APTT 37.4 Seconds (26.0-36.0) H 08/03/16 03:56 Potassium 3.4 mEq/L (3.5-4.5) L 08/03/16 03:56 Carbon Dioxide 31 mEq/L (19-29) H 08/03/16 03:56 Creatinine 0.52 mg/dL (0.72-1.25) L 08/03/16 03:56 Glucose 150 mg/dL (70-99) H 08/03/16 03:56 POC Glucose 150 (58-89) H 08/03/16 11:53 Calcium 8.4 mg/dL (8.6-10.8) L 08/03/16 03:56 Magnesium 1.3 mg/dL (1.6-2.6) L 08/03/16 03:56 Total Bilirubin 1.3 mg/dL (0.2-1.2) H 08/03/16 03:56 Direct Bilirubin 0.7 mg/dL (0.0-0.5) H 08/02/16 16:58 Creatine Kinase 20 Units/L (30-200) L 08/02/16 16:58 Albumin 2.4 g/dL (3.5-5.0) L 08/03/16 03:56 Globulin 3.7 g/dL (2.4-3.5) H 08/03/16 03:56 Albumin/Globulin Ratio 0.6 (1.1-2.2) L 08/03/16 03:56 Urine Bilirubin Small (Negative) H 08/03/16 04:05 Urine Urobilinogen 2.0 mg/dL (Normal) H 08/03/16 04:05 Ur Leukocyte Esterase Trace (Negative) H 08/03/16 04:05 Ur Culture Indicated? YES (NO) A 08/03/16 04:05 Consult Discharge Plan - Plan Additional Instructions: Possible discharge next a.m. awaiting for physical therapy . To assess home safety patient refused rehabilitation. ORTHOPEDIC DISCHARGE INSTRUCTIONS Dr. Forde Activity -Do not put any weight through your left lower extremity. -Keep the splint and knee immobilizer on at all times. Medications -Take your medications as prescribed by the hospitalist. Follow-Up -Follow-up with Dr. Forde office in 1 week. -Call the office at [phone] to schedule or confirm your appointment. Referrals: Saman Garg MD [Primary Care Provider] -
--- NOTE | 2016-08-04 13:32 | Internal Med Progress Note ---
Date of Encounter: 08/04/16 Time of Encounter: 11:30 - Assessment and plan (1) Closed tibia fracture Current Visit: Yes Status: Acute Assessment and plan: S/P cast , Knee support , need hospital bed. Really need rehabilitation for safety patient refused . Consider home health care on discharge. Discussed with staff and Pain medication before ambulation up to chair. Qualifiers: Encounter type: initial encounter Tibia location: shaft Fracture morphology: comminuted Fracture alignment: displaced Laterality: left Qualified Code(s): S82.252A - Displaced comminuted fracture of shaft of left tibia, initial encounter for closed fracture (2) DVT (deep venous thrombosis) Current Visit: Yes Status: Acute Assessment and plan: Continue xarelto . Monitor H&H. Qualifiers: DVT location: lower extremity Affected thrombotic vein of extremity: popliteal Laterality: left Chronicity: acute Qualified Code(s): I82.432 - Acute embolism and thrombosis of left popliteal vein (3) Hypokalemia Current Visit: Yes Status: Acute Assessment and plan: check potassium magnesium (4) Type 2 diabetes mellitus Current Visit: Yes Status: Acute Assessment and plan: ISS Qualifiers: Diabetes mellitus complication status: without complication Diabetes mellitus petroleum terminal plant operator insulin use: without petroleum terminal plant operator use Qualified Code(s): E11.9 - Type 2 diabetes mellitus without complications (5) Hypertension Current Visit: Yes Status: Acute Qualifiers: Hypertension type: essential hypertension Qualified Code(s): I10 - Essential (primary) hypertension (6) Hypotension Current Visit: Yes Status: Acute Assessment and plan: Gentle hydration monitor H&H Qualifiers: Hypotension type: unspecified hypotension type Qualified Code(s): I95.9 - Hypotension, unspecified - Subjective Interval history: patient seen and examined. Patient denies any shortness of breath. Patient denies any chest pain. Pain left lower extremity with any movement, need assist with ambulation - Constitutional Vitals: Temp Pulse Resp BP Pulse Ox 98.3 F 72 18 93/59 93 L 08/04/16 10:47 08/04/16 10:47 08/04/16 10:47 08/04/16 10:47 08/04/16 10:47 General appearance: Present: A&O X 3, morbidly obese, no acute distress - Head Head exam: Present: atraumatic, normocephalic - Neck Neck exam general surgery: Present: supple, trachea midline. Absent: lymphadenopathy - Respiratory Respiratory exam: Present: CTAB. Absent: accessory muscle use, rales, rhonchi, wheezes - Cardiovascular Cardiovascular exam: Present: RRR, +S1, +S2. Absent: diastolic murmur, gallop, rubs, systolic murmur - Extremities Exam Extremities exam: Present: pedal edema (Positive to lower extremity edema), warm , radial pulses palpable and symetrical. Absent: calf tenderness, cyanotic Internal Medicine: Result - Labs CBC & Chem 7: 08/03/16 03:56 08/03/16 03:56 - ABG Interpretation ABG results: PT/INR, D-dimer PT 12.7 Seconds (9.4-12.1) H 08/02/16 16:58 Consult Discharge Plan - Plan Additional Instructions: Possible discharge next a.m. awaiting for physical therapy . To assess home safety patient refused rehabilitation. ORTHOPEDIC DISCHARGE INSTRUCTIONS Dr. Forde Activity -Do not put any weight through your left lower extremity. -Keep the splint and knee immobilizer on at all times. Medications -Take your medications as prescribed by the hospitalist. Follow-Up -Follow-up with Dr. Forde office in 1 week. -Call the office at [phone] to schedule or confirm your appointment. Referrals: Saman Garg MD [Primary Care Provider] -
[2016-08-04] MEDS: 0.9 % Sodium Chloride 1,000 ML IVC SCH (14:10)
[2016-08-04 14:49] LABS: Magnesium 0.9 mg/dL (1.6-2.6); Potassium 3.8 mEq/L (3.5-4.5)
[2016-08-04 15:37] LABS: Hematocrit 32.6 % (37.5-50.1); Hemoglobin 10.7 g/dL (12.9-16.9)
[2016-08-04] MEDS: Acetaminophen 325 MG TABLET PO PRN (19:48)
[2016-08-05] MEDS: 0.9 % Sodium Chloride 1,000 ML IVC SCH ×2 (03:10→20:59)
[2016-08-05 06:23] LABS: ABG HCO3 34.5 mEQ/L (21-27); ABG Oxygen Saturation 99 % (95-98); ABG PCO2 52 mmHg (35-45); ABG PH 7.43 pH Units (7.32-7.45); ABG PO2 116 mmHg (85-104); ABG TCO2 36.1 mEq/L (20-26); Blood Gas FiO2 32 %; Blood Gas Liter Flow 3 L/MIN
[2016-08-05] MEDS: Furosemide 40 MG TABLET PO SCH (07:31)
[2016-08-05] MEDS: Cholecalciferol (D-3) 1,000 UNIT TABLET PO SCH (07:31)
[2016-08-05] MEDS: Insulin LISPRO 300 UNITS/3 ML VIAL SQ SCH ×4 (07:31→20:59)
[2016-08-05] MEDS: *HR* Rivaroxaban 15 MG TABLET PO SCH ×2 (07:31→21:00)
[2016-08-05] MEDS: *HR* OxyCODONE/APAP 5/325 TABLET PO PRN ×3 (07:39→21:03)
--- NOTE | 2016-08-05 10:02 | Internal Med Progress Note ---
Date of Encounter: 08/05/16 Time of Encounter: 09:55 - Assessment and plan (1) Closed tibia fracture Current Visit: Yes Status: Acute Qualifiers: Encounter type: initial encounter Tibia location: shaft Fracture morphology: comminuted Fracture alignment: displaced Laterality: left Qualified Code(s): S82.252A - Displaced comminuted fracture of shaft of left tibia, initial encounter for closed fracture (2) DVT (deep venous thrombosis) Current Visit: Yes Status: Acute Assessment and plan: Continue xarelto . Monitor H&H. Qualifiers: DVT location: lower extremity Affected thrombotic vein of extremity: popliteal Laterality: left Chronicity: acute Qualified Code(s): I82.432 - Acute embolism and thrombosis of left popliteal vein (3) Hypokalemia Current Visit: Yes Status: Acute Assessment and plan: Secondary to sever hypomagnesemia , Replace (4) Type 2 diabetes mellitus Current Visit: Yes Status: Acute Qualifiers: Diabetes mellitus complication status: without complication Diabetes mellitus local company intermodal truck driver insulin use: without local company intermodal truck driver use Qualified Code(s): E11.9 - Type 2 diabetes mellitus without complications (5) Hypertension Current Visit: Yes Status: Acute Qualifiers: Hypertension type: essential hypertension Qualified Code(s): I10 - Essential (primary) hypertension (6) Hypotension Current Visit: Yes Status: Acute Assessment and plan: Gentle hydration monitor H&H, replace magnesium Qualifiers: Hypotension type: unspecified hypotension type Qualified Code(s): I95.9 - Hypotension, unspecified (7) Hypoxemia Current Visit: Yes Status: Acute Assessment and plan: With recent DVT , hypoxemia over night cannot R/O PE will check CTA - Subjective Interval history: Patient seen and examined. Patient oxygen SATURATION dropped last night - Constitutional Vitals: Temp Pulse Resp BP Pulse Ox 98.7 F 72 16 92/52 96 08/05/16 06:59 08/05/16 06:59 08/05/16 06:59 08/05/16 06:59 08/05/16 06:59 General appearance: Present: A&O X 3, morbidly obese, no acute distress - Head Head exam: Present: atraumatic, normocephalic - Neck Neck exam general surgery: Present: supple, trachea midline. Absent: lymphadenopathy - Respiratory Respiratory exam: Present: decreased breath sounds. Absent: accessory muscle use, rales, rhonchi, wheezes - Cardiovascular Cardiovascular exam: Present: RRR, +S1, +S2. Absent: diastolic murmur, gallop, rubs, systolic murmur - GI/Abdominal GI/Abdominal exam: Present: normal bowel sounds, soft, no peritoneal signs. Absent: distended, tenderness Internal Medicine: Result - Labs CBC & Chem 7: 08/05/16 10:13 08/05/16 10:13 Labs: Short CBC 08/04/16 Range/Units 14:03 Hgb 10.7 L D (12.9-16.9) g/dL Hct 32.6 L (37.5-50.1) % BMP 08/04/16 14:03 Potassium 3.8 - ABG Interpretation ABG results: ABG ABG pH 7.43 pH Units (7.32-7.45) 08/05/16 06:12 ABG pCO2 52 mmHg (35-45) H 08/05/16 06:12 ABG pO2 116 mmHg (85-104) H 08/05/16 06:12 ABG O2 Saturation 99 % (95-98) H 08/05/16 06:12 PT/INR, D-dimer PT 12.7 Seconds (9.4-12.1) H 08/02/16 16:58 - Impressions Impressions Chest X-Ray 08/05/16 05:15 IMPRESSION: No significant change. Patient rotation limits evaluation. D/ / Madhu Franklin MD / Madhu Franklin MD Interpreting Provider: Madhu Franklin MD Consult Discharge Plan - Plan Additional Instructions: Possible discharge next a.m. awaiting for physical therapy . To assess home safety patient refused rehabilitation. ORTHOPEDIC DISCHARGE INSTRUCTIONS Dr. Forde Activity -Do not put any weight through your left lower extremity. -Keep the splint and knee immobilizer on at all times. Medications -Take your medications as prescribed by the hospitalist. Follow-Up -Follow-up with Dr. Frode office in 1 week. -Call the office at [phone] to schedule or confirm your appointment. Referrals: Saman Garg MD [Primary Care Provider] -
[2016-08-05 10:44] LABS: Basophils % 0.6 %; Eosinophils # 0.2 K/mcL (0.0-0.6); Eosinophils % 2.4 %; Hematocrit 31.2 % (37.5-50.1); Hemoglobin 10.3 g/dL (12.9-16.9); Immature Granulocytes % 1.4 % (0-4); Immature Platelets 1.7 % (1.1-6.1); Lymphocytes # 1.5 K/mcL (0.6-4.6); Lymphocytes % 21.2 %; Mean Corpuscular Hemoglobin 31.5 pg (28.0-33.3); Mean Corpuscular Volume 95.4 fL (83.0-100.0); Mean Platelet Volume 9.1 fL (9.4-12.4); Monocytes # 0.7 K/mcL (0.0-1.3); Monocytes % 10.4 %; Neutrophils # 4.5 K/mcL (1.6-8.9); Platelet Count 240 K/mcL (140-400); Red Blood Count 3.27 M/mcL (4.19-5.50); Red Cell Distribution Width 13.2 % (11.5-14.5)
[2016-08-05 10:57] LABS: BUN/Creatinine Ratio 46 (6-26); Calcium 8.1 mg/dL (8.6-10.8); Carbon Dioxide 28 mEq/L (19-29); Chloride 103 mEq/L (98-109); Glucose 156 mg/dL (70-99); Osmolality,Calculated 293 (280-300); Phosphorous 3.2 mg/dL (2.3-4.7); Potassium 3.8 mEq/L (3.5-4.5); Sodium 138 mEq/L (136-145); eGFR For African Americans > 60 (> 60); eGFR For Non-African Americans > 60 (> 60)
[2016-08-05 10:58] LABS: Blood Urea Nitrogen 24 mg/dL (8-26)
[2016-08-05] MEDS: Magnesium Sulfate 2 GM in D5% in Water 100 ML IVPB SCH (13:46)
[2016-08-06] MEDS: *HR* OxyCODONE/APAP 5/325 TABLET PO PRN ×2 (08:39→16:55)
[2016-08-06] MEDS: Cholecalciferol (D-3) 1,000 UNIT TABLET PO SCH (08:39)
[2016-08-06] MEDS: *HR* Rivaroxaban 15 MG TABLET PO SCH ×2 (08:40→22:36)
[2016-08-06] MEDS: Furosemide 40 MG TABLET PO SCH (08:40)
[2016-08-06] MEDS: Insulin LISPRO 300 UNITS/3 ML VIAL SQ SCH ×4 (08:41→21:22)
[2016-08-06] MEDS: Magnesium Sulfate 2 GM in D5% in Water 100 ML IVPB SCH (12:42)
[2016-08-06] MEDS: 0.9 % Sodium Chloride 1,000 ML IVC SCH (12:42)
--- NOTE | 2016-08-06 16:09 | Internal Med Progress Note ---
Date of Encounter: 08/06/16 Time of Encounter: 16:07 - Assessment and plan (1) Closed tibia fracture Current Visit: Yes Status: Acute Assessment and plan: S/P cast , Knee support , need hospital bed. Really need rehabilitation for safety patient refused . Consider home health care on discharge. Discussed with social worker palliative care patient needs electrical. Before going home with his displaced tibial fracture status post cast, very high risk for pressure ulcer need air mattress wheelchair cushion left. All documentation and paperwork signed, family service worker stated hospital bed will be delivered tomorrow morning, possible discharge next a.m. Qualifiers: Encounter type: initial encounter Tibia location: shaft Fracture morphology: comminuted Fracture alignment: displaced Laterality: left Qualified Code(s): S82.252A - Displaced comminuted fracture of shaft of left tibia, initial encounter for closed fracture (2) DVT (deep venous thrombosis) Current Visit: Yes Status: Acute Assessment and plan: Continue xarelto . Monitor H&H. Qualifiers: DVT location: lower extremity Affected thrombotic vein of extremity: popliteal Laterality: left Chronicity: acute Qualified Code(s): I82.432 - Acute embolism and thrombosis of left popliteal vein (3) Type 2 diabetes mellitus Current Visit: Yes Status: Acute Assessment and plan: Close monitoring Qualifiers: Diabetes mellitus complication status: without complication Diabetes mellitus fpc insulin use: without intermission coordinator use Qualified Code(s): E11.9 - Type 2 diabetes mellitus without complications (4) Hypotension Current Visit: Yes Status: Acute Qualifiers: Hypotension type: unspecified hypotension type Qualified Code(s): I95.9 - Hypotension, unspecified (5) Hypoxemia Current Visit: Yes Status: Acute Assessment and plan: Counseling on deep breathing CTA chest no evidence of pulmonary embolism (6) Diarrhea Current Visit: Yes Status: Acute Assessment and plan: Check stool study history of radiation possible secondary to radiation therapy add Lactobacillus Qualifiers: Diarrhea type: unspecified type Qualified Code(s): R19.7 - Diarrhea, unspecified (7) Atelectasis Current Visit: Yes Status: Acute Assessment and plan: Counseling on deep breathing with his poor ambulation would add aerosol treatments - Subjective Interval history: Patient complains of diarrhea. Patient denies any chest pain or shortness of breath. He Is still oxygen . His left lower extremity in cast. With his morbid obesity and the left [place] displaced comminuted fracture with his pain patient needs electric hospital bed. Very high risk for pressure ulcer need underlay mattress wheelchair cushion, Left . Patient complaining of diarrhea - Constitutional Vitals: Temp Pulse Resp BP Pulse Ox 98.2 F 57 18 110/64 96 08/06/16 15:15 08/06/16 15:15 08/06/16 15:15 08/06/16 15:15 08/06/16 15:15 General appearance: Present: A&O X 3, morbidly obese, no acute distress - Respiratory Respiratory exam: Present: CTAB. Absent: accessory muscle use, rales, rhonchi, wheezes - Cardiovascular Cardiovascular exam: Present: RRR, +S1, +S2. Absent: diastolic murmur, gallop, rubs, systolic murmur - GI/Abdominal GI/Abdominal exam: Present: normal bowel sounds, soft, no peritoneal signs. Absent: tenderness - Extremities Exam Extremities exam: Present: pedal edema (his left lower extremity in cast hard to ambulate), warm, radial pulses palpable and symetrical. Absent: cyanotic Internal Medicine: Result - Labs CBC & Chem 7: 08/05/16 10:13 08/05/16 10:13 - ABG Interpretation ABG results: ABG ABG pH 7.43 pH Units (7.32-7.45) 08/05/16 06:12 ABG pCO2 52 mmHg (35-45) H 08/05/16 06:12 ABG pO2 116 mmHg (85-104) H 08/05/16 06:12 ABG O2 Saturation 99 % (95-98) H 08/05/16 06:12 PT/INR, D-dimer PT 12.7 Seconds (9.4-12.1) H 08/02/16 16:58 - VTE Documentation of Mechanical Device: Graduated compression elastic hosiery Consult Discharge Plan - Plan Additional Instructions: Possible discharge next a.m. awaiting for physical therapy . To assess home safety patient refused rehabilitation. ORTHOPEDIC DISCHARGE INSTRUCTIONS Dr. Forde Activity -Do not put any weight through your left lower extremity. -Keep the splint and knee immobilizer on at all times. Medications -Take your medications as prescribed by the hospitalist. Follow-Up -Follow-up with Dr. Forde office in 1 week. -Call the office at [phone] to schedule or confirm your appointment. Referrals: Saman Garg MD [Primary Care Provider] - Checo Kat MD [Non-Partnered Physician] - 08/11/16 8:30 am (Please arrive 30 minutes prior to appointment with any medications you are currently taking. If you need to cancel, please contact physicians office 24 hours prior to appointment.)
[2016-08-06] MEDS: Lactobacillus 1 EACH CAP.SPRINK PO SCH (16:54)
[2016-08-07] MEDS: Insulin LISPRO 300 UNITS/3 ML VIAL SQ SCH ×4 (08:01→20:26)
[2016-08-07] MEDS: 0.9 % Sodium Chloride 1,000 ML IVC SCH ×2 (08:01→21:57)
[2016-08-07] MEDS: Furosemide 40 MG TABLET PO SCH (08:13)
[2016-08-07] MEDS: Cholecalciferol (D-3) 1,000 UNIT TABLET PO SCH (08:13)
[2016-08-07] MEDS: Lactobacillus 1 EACH CAP.SPRINK PO SCH (08:13)
[2016-08-07] MEDS: *HR* Rivaroxaban 15 MG TABLET PO SCH ×2 (08:14→20:25)
--- NOTE | 2016-08-07 09:49 | Orthopedics Progress Note ---
Date of Encounter: 08/07/16 Time of Encounter: 09:47 - Assessment and Plan (1) Closed tibia fracture Current Visit: Yes Status: Acute Qualifiers: Encounter type: initial encounter Tibia location: shaft Fracture morphology: comminuted Fracture alignment: displaced Laterality: left Qualified Code(s): S82.252A - Displaced comminuted fracture of shaft of left tibia, initial encounter for closed fracture Subjective Interval history: Pain well controlled. Afebrile, vitals stable. Left leg: -Knee immobilizer and short leg splint in place. -He can flex and extend the toes. -The toes are senate and well perfused Impression: -Left tibia fracture -DVT Plan: -NWB LLE -Physical therapy -Splint and knee immobilizer for tibia fx; Plan on non op management -Follow up with me in the office next week for a repeat set of x-rays -DVT management per primary team -Orthopedically stable for discharge. Objective Vital signs: Vital Signs Temp Pulse Resp BP Pulse Ox 08/07/16 08:04 98.5 F 61 16 107/52 98 08/07/16 01:45 98.3 F 68 16 116/95 95 08/06/16 20:59 98.9 F 71 17 106/66 98 08/06/16 15:15 98.2 F 57 18 110/64 96 08/06/16 10:14 98.7 F 68 16 108/64 97 Intake and Output 08/06/16 08/07/16 08/07/16 23:59 07:59 15:59 Intake Total 1000 / 1000 Output Total 200 / 200 Balance 800 / 800 Intake: IV Fluids 1000 / 1000 0.9 % Sodium Chloride 1, 1000 / 1000 000 ML @ 75 mls/hr IVC . [id number] DANAY Rx#: [id number] Output: Urine 200 / 200 Other: Blood Glucose* 143 124 - Labs CBC & BMP: 08/05/16 10:13 08/05/16 10:13 Labs: Abnormal lab results RBC 3.27 M/mcL (4.19-5.50) L 08/05/16 10:13 Hgb 10.3 g/dL (12.9-16.9) L 08/05/16 10:13 Hct 31.2 % (37.5-50.1) L 08/05/16 10:13 MPV 9.1 fL (9.4-12.4) L 08/05/16 10:13 PT 12.7 Seconds (9.4-12.1) H 08/02/16 16:58 APTT 37.4 Seconds (26.0-36.0) H 08/03/16 03:56 ABG pCO2 52 mmHg (35-45) H 08/05/16 06:12 ABG pO2 116 mmHg (85-104) H 08/05/16 06:12 ABG HCO3 34.5 mEQ/L (21-27) H 08/05/16 06:12 ABG Total CO2 36.1 mEq/L (20-26) H 08/05/16 06:12 ABG O2 Saturation 99 % (95-98) H 08/05/16 06:12 ABG Base Excess 9.0 mEq/L (-2.0 to 3.0) H 08/05/16 06:12 Creatinine 0.52 mg/dL (0.72-1.25) L 08/05/16 10:13 BUN/Creatinine Ratio 46 (6-26) H 08/05/16 10:13 Glucose 156 mg/dL (70-99) H 08/05/16 10:13 POC Glucose 143 (58-89) H 08/06/16 20:11 Calcium 8.1 mg/dL (8.6-10.8) L 08/05/16 10:13 Magnesium 1.1 mg/dL (1.6-2.6) L 08/05/16 10:13 Total Bilirubin 1.3 mg/dL (0.2-1.2) H 08/03/16 03:56 Direct Bilirubin 0.7 mg/dL (0.0-0.5) H 08/02/16 16:58 Creatine Kinase 20 Units/L (30-200) L 08/02/16 16:58 Albumin 2.4 g/dL (3.5-5.0) L 08/03/16 03:56 Globulin 3.7 g/dL (2.4-3.5) H 08/03/16 03:56 Albumin/Globulin Ratio 0.6 (1.1-2.2) L 08/03/16 03:56 Urine Bilirubin Small (Negative) H 08/03/16 04:05 Urine Urobilinogen 2.0 mg/dL (Normal) H 08/03/16 04:05 Ur Leukocyte Esterase Trace (Negative) H 08/03/16 04:05 Ur Culture Indicated? YES (NO) A 08/03/16 04:05 - VTE Documentation of Mechanical Device: Graduated compression elastic hosiery Consult Discharge Plan - Plan Additional Instructions: Possible discharge next a.m. awaiting for physical therapy . To assess home safety patient refused rehabilitation. ORTHOPEDIC DISCHARGE INSTRUCTIONS Dr. Forde Activity -Do not put any weight through your left lower extremity. -Keep the splint and knee immobilizer on at all times. Medications -Take your medications as prescribed by the hospitalist. Follow-Up -Follow-up with Dr. Forde in office 7 to 10 days from injury for repeat x- ray. -Call the office at [phone] to schedule or confirm your appointment. Referrals: Saman Garg MD [Primary Care Provider] - Checo Kat MD [Non-Partnered Physician] - 08/11/16 8:30 am (Please arrive 30 minutes prior to appointment with any medications you are currently taking. If you need to cancel, please contact physicians office 24 hours prior to appointment.)
--- NOTE | 2016-08-07 15:45 | Discharge Summary ---
Date of Encounter: 08/07/16 Time of Encounter: 15:42 - Discharge Diagnosis (1) Closed tibia fracture Priority: Primary Status: Acute Comments: XRay showed mildly displaced and comminuted transverse fracture through the distal diaphysis Splinted. Qualifiers: Encounter type: initial encounter Tibia location: shaft Fracture morphology: comminuted Fracture alignment: displaced Laterality: left Qualified Code(s): S82.252A - Displaced comminuted fracture of shaft of left tibia, initial encounter for closed fracture (2) DVT (deep venous thrombosis) Priority: Primary Status: Acute Comments: Lower extremity Doppler revealed S superficial femoral vein and popliteal vein with acute thrombus Qualifiers: DVT location: lower extremity Affected thrombotic vein of extremity: popliteal Laterality: left Chronicity: acute Qualified Code(s): I82.432 - Acute embolism and thrombosis of left popliteal vein (3) Hypertension Priority: Secondary Status: Acute Qualifiers: Hypertension type: essential hypertension Qualified Code(s): I10 - Essential (primary) hypertension (4) Hypokalemia Priority: Secondary Status: Acute (5) Type 2 diabetes mellitus Priority: Secondary Status: Acute Qualifiers: Diabetes mellitus complication status: without complication Diabetes mellitus senior care insulin use: without technician terminal and repeater use Qualified Code(s): E11.9 - Type 2 diabetes mellitus without complications (6) 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 Rivaroxaban [Xarelto] 15 mg PO BID 60 Days Home Medications: Allopurinol [Zyloprim 300 MG] 300 mg PO DAILY 10/06/15 [History] Cholecalciferol (Vitamin D3) [Vitamin D3] 5,000 unit PO DAILY 10/06/15 [History] Citalopram [CeleXA] 20 mg PO HS 10/06/15 [History] Furosemide [Lasix] 40 mg PO DAILY 10/06/15 [History] Lisinopril [Zestril] 5 mg PO DAILY 10/06/15 [History] Meclizine HCl [Verticalm] 25 mg PO DAILY 10/06/15 [History] Potassium Chloride [K-Tab ER] 10 meq PO DAILY 10/06/15 [History] Ranitidine HCl 150 mg PO BID 10/06/15 [History] Simvastatin [Zocor] 40 mg PO HS 10/06/15 [History] Clopidogrel Bisulfate [Plavix] 75 mg PO DAILY #30 tablet 10/08/15 [Rx] Alendronate Sodium [Fosamax] 70 mg PO QWEEK 08/02/16 [History] Mupirocin Calcium [Bactroban] 1 appl TP TID 08/02/16 [History] Acetaminophen [Tylenol Arthritis] 650 mg PO Q6H PRN 08/03/16 [History] Nystatin Cream [Mycostatin Cream] 1 appl TP TID 08/03/16 [History] OxyCODONE/APAP 5/325 [Percocet 5/325 MG] 1 each PO Q4HR PRN #20 tablet 08/07/16 [Rx] Pantoprazole Sodium [Protonix] 40 mg PO DAILY #30 tablet. 08/07/16 [Rx] Rivaroxaban [Xarelto] 15 mg PO BID 60 Days 08/07/16 [Rx] Allergies/Adverse Reactions: Allergies morphine Allergy (Verified 08/02/16 16:55) Rash Penicillins Allergy (Verified 10/06/15 19:04) Rash Procedures/tests Complete & Pending: Procedures Performed prior 72 hours Category Date Time Status CTA chest [CT angio chest] [CT] Routine Cat Scan 08/05/16 10:30 Completed Date of admission: 08/02/16 19:47 Primary care physician: Saman Garg MD Consults: 08/02/16 21:43 Consult to Occupational Therapy [CONS] Routine Comment: Evaluate, develop and implement POC Consult to Physical Therapy [CONS] Routine Comment: Evaluate, develop and implement POC Consult to Case Loader Operator [CONS] Routine Reason for SW Consult: Broken tibia, will need facility placement at discharge - Patient Status Disposition: Home Health Service Condition: Fair Overall status at discharge: patient is progressing back to baseline - Discharge Instructions Follow Up With: Saman Garg MD [Primary Care Provider] - Checo Kat MD [Non-Partnered Physician] - 08/11/16 8:30 am (Please arrive 30 minutes prior to appointment with any medications you are currently taking. If you need to cancel, please contact physicians office 24 hours prior to appointment.) Additional Instructions: Follow with primary care physician within the next 7 days. Follow with orthopedic surgery within the next 7-10 days. Fall precautions. Continue toe 15 mg twice a day to complete 21 days and then switch to 20 mg daily ORTHOPEDIC DISCHARGE INSTRUCTIONS Dr. Forde Activity -Do not put any weight through your left lower extremity. -Keep the splint and knee immobilizer on at all times. Medications -Take your medications as prescribed by the hospitalist. Follow-Up -Follow-up with Dr. Forde in office 7 to 10 days from injury for repeat x- ray. -Call the office at [phone] to schedule or confirm your appointment. - Diet and Activity Activity: increase activity as tolerated Diet: diabetic diet Hospital course: Mr. Burch is a 71 year old male with history of hypertension, hyperlipidemia , type 2 diabetes not insulin-dependent, TIA, and left knee replacement who presented to the ED with pain in his left leg after rolling out of bed 2 days prior to his admission. He described the pain as dull, throbbing, same since his fall. He does not ambulate at baseline and uses a wheelchair and a lift chair . He lives with his niece who assists him. He denied hitting his head, however this ED did get a head CT which showed no acute intracranial abnormality. X-ray of the left leg showed mildly displaced and comminuted transverse fracture through the distal diaphysis of the tibia. Left Lower extremity Doppler revealed S superficial femoral vein and popliteal vein with acute thrombus. She will would hypokalemia with potassium of 3.0, and hyperglycemia with blood sugar of 223. The patient was evaluated by the orthopedic surgery service who recommended to maintain the splint on his left lower extremity. Patient was started on serosal own 08/04/2016. The patient had a CT angiogram chest done that did not show any pulmonary emboli. The patient is bedbound most of the time and because of morbid obesity he will require a heavy duty extrawide bariatric semi-electric bed as it is not feasible for him to use an ordinary bed due to severe difficulty to mobilize with a splinted left lower extremity and morbid obesity. She will follow up as an outpatient with orthopedic surgery. - Time Spent with Patient Total time spent providing and/or coordinating discharge services: Greater than 30 minutes - Constitutional Vitals: Temp Pulse Resp BP Pulse Ox 98.0 F 92 16 118/49 100 08/07/16 11:45 08/07/16 11:45 08/07/16 11:45 08/07/16 11:45 08/07/16 11:45 General appearance: Present: A&O X 3, morbidly obese, no acute distress - Head Head exam: Present: atraumatic, normocephalic - Eye Eye exam: Present: PERRL, conjuntiva pink, sclera anicteric Pupils: Present: PERRL - Neck Neck exam general surgery: Present: supple, trachea midline. Absent: lymphadenopathy - Respiratory Respiratory exam: Present: CTAB. Absent: accessory muscle use, rales, rhonchi, wheezes - Cardiovascular Cardiovascular exam: Present: RRR, +S1, +S2. Absent: diastolic murmur, gallop, rubs, systolic murmur - GI/Abdominal GI/Abdominal exam: Present: distended, normal bowel sounds, soft, no peritoneal signs. Absent: tenderness - Extremities Exam Extremities exam: Present: warm, radial pulses palpable and symetrical. Absent : calf tenderness, cyanotic, pedal edema Additional comments: +1 nonpitting edema in both lower extremities. Left lower extremity with large splint. - Neurological Exam Neurological exam: Present: CN II-XII intact, oriented X3, no focal deficits. Absent: pronater drift, facial droop, speech deficit - Skin Skin exam: Present: dry, intact - VTE Documentation of Mechanical Device: Graduated compression elastic hosiery
--- NOTE | 2016-08-07 16:12 | Physician Discharge Referral ---
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 For more information, call the [employer] Tobacco Quit Line at 5-692-AFUN-NOW. - Diet/Nutrition Diet/Nutrition Orders: No Concentrated Sweets (ADA diet 1800 kcal) - Services Needed Following services are medically necessary services: Nursing, Physical Therapy, Occupational Therapy Home Care Orders: Follow with primary care physician within the next 7 days. Follow with orthopedic surgery within the next 7-10 days. Fall precautions. Continue toe 15 mg twice a day to complete 21 days and then switch to 20 mg daily - Transfer Medications Prescriptions: OxyCODONE/APAP 5/325 [Percocet 5/325 MG] 1 each PO Q4HR PRN #20 tablet PRN Reason: Pain Pantoprazole Sodium [Protonix] 40 mg PO DAILY #30 tablet. Rivaroxaban [Xarelto] 15 mg PO BID 60 Days Home Medications: Allopurinol [Zyloprim 300 MG] 300 mg PO DAILY 10/06/15 [History] Cholecalciferol (Vitamin D3) [Vitamin D3] 5,000 unit PO DAILY 10/06/15 [History] Citalopram [CeleXA] 20 mg PO HS 10/06/15 [History] Furosemide [Lasix] 40 mg PO DAILY 10/06/15 [History] Lisinopril [Zestril] 5 mg PO DAILY 10/06/15 [History] Meclizine HCl [Verticalm] 25 mg PO DAILY 10/06/15 [History] Potassium Chloride [K-Tab ER] 10 meq PO DAILY 10/06/15 [History] Ranitidine HCl 150 mg PO BID 10/06/15 [History] Simvastatin [Zocor] 40 mg PO HS 10/06/15 [History] Clopidogrel Bisulfate [Plavix] 75 mg PO DAILY #30 tablet 10/08/15 [Rx] Alendronate Sodium [Fosamax] 70 mg PO QWEEK 08/02/16 [History] Mupirocin Calcium [Bactroban] 1 appl TP TID 08/02/16 [History] Acetaminophen [Tylenol Arthritis] 650 mg PO Q6H PRN 08/03/16 [History] Nystatin Cream [Mycostatin Cream] 1 appl TP TID 08/03/16 [History] OxyCODONE/APAP 5/325 [Percocet 5/325 MG] 1 each PO Q4HR PRN #20 tablet 08/07/16 [Rx] Pantoprazole Sodium [Protonix] 40 mg PO DAILY #30 tablet. 08/07/16 [Rx] Rivaroxaban [Xarelto] 15 mg PO BID 60 Days 08/07/16 [Rx] Allergies/Adverse Reactions: Allergies morphine Allergy (Verified 08/02/16 16:55) Rash Penicillins Allergy (Verified 10/06/15 19:04) Rash Certification: Further, I certify that my clinical findings support that this patient is homebound (i.e. absences from home require considerable and taxing effort and are for medical reasons or worship services or infrequently or short duration when for other reasons) because: Homebound Reason: Patient requires assistance of a person or device to safely leave home Attestation: My signature below is to certify that this patient is under my care and that I, or nurse practitioner, or a physician's periodontal assistant working with me, has a face-to -face encounter with this patient.
[2016-08-08] MEDS: *HR* OxyCODONE/APAP 5/325 TABLET PO PRN (06:22)
[2016-08-08] MEDS: Furosemide 40 MG TABLET PO SCH (07:59)
[2016-08-08] MEDS: Insulin LISPRO 300 UNITS/3 ML VIAL SQ SCH ×2 (08:10→12:29)
[2016-08-08] MEDS: Lactobacillus 1 EACH CAP.SPRINK PO SCH (08:11)
[2016-08-08] MEDS: Cholecalciferol (D-3) 1,000 UNIT TABLET PO SCH (08:11)
[2016-08-08] MEDS: *HR* Rivaroxaban 15 MG TABLET PO SCH (08:11)
[2016-08-08 11:52] VITALS: BP 114/73
--- NOTE | 2016-08-08 11:53 | Internal Med Progress Note ---
Date of Encounter: 08/08/16 Time of Encounter: 11:51 - Assessment and plan (1) Closed tibia fracture Current Visit: Yes Status: Acute Assessment and plan: XRay showed mildly displaced and comminuted transverse fracture through the distal diaphysis, Splinted. S/P cast , Knee support , hospital bed now available. Really need rehabilitation for safety patient refused . Was not able to be discharged yesterday as he is hospital that was not available at his home yet. Will be discharged today with no change in his plan of care. Qualifiers: Encounter type: initial encounter Tibia location: shaft Fracture morphology: comminuted Fracture alignment: displaced Laterality: left Qualified Code(s): S82.252A - Displaced comminuted fracture of shaft of left tibia, initial encounter for closed fracture (2) DVT (deep venous thrombosis) Current Visit: Yes Status: Acute Assessment and plan: Continue xarelto . Left lower extremity DVT Acute embolism and thrombosis of left popliteal vein Qualifiers: DVT location: lower extremity Affected thrombotic vein of extremity: popliteal Laterality: left Chronicity: acute Qualified Code(s): I82.432 - Acute embolism and thrombosis of left popliteal vein (3) Hypertension Current Visit: Yes Status: Acute Qualifiers: Hypertension type: essential hypertension Qualified Code(s): I10 - Essential (primary) hypertension (4) Hypokalemia Current Visit: Yes Status: Acute Assessment and plan: Secondary to sever hypomagnesemia , Replaced (5) Type 2 diabetes mellitus Current Visit: Yes Status: Acute Assessment and plan: Check glucose daily at home Qualifiers: Diabetes mellitus complication status: without complication Diabetes mellitus terminal worker insulin use: without terminal worker use Qualified Code(s): E11.9 - Type 2 diabetes mellitus without complications (6) 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 Denies any shortness of breath, no abdominal pain, no dysuria, no diarrhea. No fevers - Constitutional Vitals: Temp Pulse Resp BP Pulse Ox 98.4 F 86 18 91/59 100 08/08/16 07:14 08/08/16 07:14 08/08/16 07:14 08/08/16 07:14 08/08/16 07:14 General appearance: Present: A&O X 3, morbidly obese, no acute distress - Head Head exam: Present: atraumatic, normocephalic - Eye Eye exam: Present: PERRL, conjuntiva pink, sclera anicteric Pupils: Present: PERRL - Neck Neck exam general surgery: Present: supple, trachea midline. Absent: lymphadenopathy - Respiratory Respiratory exam: Present: CTAB. Absent: accessory muscle use, rales, rhonchi, wheezes - Cardiovascular Cardiovascular exam: Present: RRR, +S1, +S2. Absent: diastolic murmur, gallop, rubs, systolic murmur - GI/Abdominal GI/Abdominal exam: Present: distended, normal bowel sounds, soft, no peritoneal signs. Absent: tenderness - Extremities Exam Extremities exam: Present: pedal edema, warm, radial pulses palpable and symetrical. Absent: calf tenderness, cyanotic Additional comments: +1 nonpitting edema in both lower extremities. Left lower extremity with large splint. - Neurological Exam Neurological exam: Present: CN II-XII intact, oriented X3, no focal deficits. Absent: pronater drift, facial droop, speech deficit - Skin Skin exam: Present: dry, intact Internal Medicine: Result - Labs CBC & Chem 7: 08/05/16 10:13 08/05/16 10:13 - ABG Interpretation ABG results: ABG ABG pH 7.43 pH Units (7.32-7.45) 08/05/16 06:12 ABG pCO2 52 mmHg (35-45) H 08/05/16 06:12 ABG pO2 116 mmHg (85-104) H 08/05/16 06:12 ABG O2 Saturation 99 % (95-98) H 08/05/16 06:12 PT/INR, D-dimer PT 12.7 Seconds (9.4-12.1) H 08/02/16 16:58 - VTE Documentation of Mechanical Device: Graduated compression elastic hosiery Consult Discharge Plan - Plan Additional Instructions: Follow with primary care physician within the next 7 days. Follow with orthopedic surgery within the next 7-10 days. Fall precautions. Continue toe 15 mg twice a day to complete 21 days and then switch to 20 mg daily ORTHOPEDIC DISCHARGE INSTRUCTIONS Dr. Forde Activity -Do not put any weight through your left lower extremity. -Keep the splint and knee immobilizer on at all times. Medications -Take your medications as prescribed by the hospitalist. Follow-Up -Follow-up with Dr. Forde in office 7 to 10 days from injury for repeat x- ray. -Call the office at [phone] to schedule or confirm your appointment. Referrals: Saman Garg MD [Primary Care Provider] - Checo Kat MD [Non-Partnered Physician] - 08/11/16 8:30 am (Please arrive 30 minutes prior to appointment with any medications you are currently taking. If you need to cancel, please contact physicians office 24 hours prior to appointment.) Prescriptions: OxyCODONE/APAP 5/325 [Percocet 5/325 MG] 1 each PO Q4HR PRN #20 tablet PRN Reason: Pain Pantoprazole Sodium [Protonix] 40 mg PO DAILY #30 tablet.dr Chuaroxaban [Xarelto] 15 mg PO BID 60 Days
== END 2016-08-08 15:19 | disposition home health service (06) | DRG 563 ==
LOC: EMEROO 15:52 → 3NENU 15:52 → SUATTDRO 19:47 → 3NENU 21:12
PROVIDERS: ADMIT Internal Medicine Sleep Medicine; ATTEND Internal Medicine

== ENCOUNTER 2020-09-09 12:46 | Inpatient (IN) ==
[2020-09-09 13:58] LABS: Bilirubin,Urine Negative (Negative); Blood,Urine Large (Negative); Clarity,Urine Ex.Turbid (Clear); Glucose,Urine (UA) Normal (Normal); Ketones,Urine Negative (Negative); Leukocyte Esterase,Urine Moderate (Negative); Nitrite,Urine Negative (Negative); Protein,Urine 30 mg/dL (Neg-Trace); Urobilinogen,Urine Normal (Normal)
[2020-09-09 14:00] LABS: Color,Urine Pink (Yellow)
[2020-09-09 14:05] LABS: Bacteria,Urine Present per hpf (None-Few); RBC,Urine TNTC per hpf (0-3); Squamous Epithelial Cell,Urine Present per hpf (None-Few); WBC,Urine Present per hpf (0-3)
[2020-09-09 14:10] LABS: Basophils % 0.6 %; Eosinophils # 0.2 K/mcL (0.0-0.6); Eosinophils % 2.4 %; Hematocrit 37.5 % (37.5-50.1); Hemoglobin 11.4 g/dL (12.9-16.9); Immature Granulocytes % 0.7 % (0-4); Lymphocytes # 1.4 K/mcL (0.6-4.6); Lymphocytes % 19.4 %; Mean Corpuscular HGB Conc 30.4 g/dL (31.6-35.5); Mean Corpuscular Hemoglobin 30.5 pg (28.0-33.3); Mean Corpuscular Volume 100.3 fL (83.0-100.0); Mean Platelet Volume 9.4 fL (9.4-12.4); Monocytes # 0.5 K/mcL (0.0-1.3); Monocytes % 7.2 %; Neutrophils # 4.9 K/mcL (1.6-8.9); Platelet Count 195 K/mcL (140-400); Red Blood Count 3.74 M/mcL (4.19-5.50); Red Cell Distribution Width 14.6 % (11.5-14.5); Segmented Neutrophils % 69.7 %; White Blood Count 7.1 K/mcL (4.3-11.1)
[2020-09-09] MEDS ORDERED: Isovue-370 500 ML BOTTLE IVP ONE (14:25)
[2020-09-09 14:29] LABS: Alanine Aminotransferase 9 Units/L (7-52); Albumin 2.9 g/dL (3.5-5.7); Albumin/Globulin Ratio 0.9 (1.1-2.2); Alkaline Phosphatase 55 Units/L (34-104); Aspartate Amino Transferase 9 Units/L (13-39); BUN/Creatinine Ratio 51 (6-26); Bilirubin,Direct 0.2 mg/dL (0.0-0.2); Bilirubin,Indirect 0.3 mg/dL (0.0-1.0); Bilirubin,Total 0.5 mg/dL (0.3-1.0); Blood Urea Nitrogen 22 mg/dL (8-23); Calcium 8.9 mg/dL (8.6-10.3); Carbon Dioxide 37 mEq/L (23-29); Chloride 97 mEq/L (98-107); Globulin 3.2 g/dL (2.4-3.5); Glucose 148 mg/dL (70-105); Osmolality,Calculated 294 (280-300); Potassium 3.9 mEq/L (3.5-5.1); Sodium 139 mEq/L (136-145); Total Protein 6.1 g/dL (6.4-8.9); Troponin I < 0.03 ng/mL (< 0.04); eGFR For African Americans > 60 (> 60); eGFR For Non-African Americans > 60 (> 60)
[2020-09-09] MEDS ORDERED: levoFLOXacin 750 MG/150 ML 750 MG/150 ML BAG IVPB ONE (15:10)
[2020-09-09 16:54] LABS: Adenovirus Not Detected (Not Detect); Coronavirus 229E Not Detected (Not Detect); Coronavirus HKU1 Not Detected (Not Detect)
[2020-09-09 16:55] LABS: Bordetella Pertussis Not Detected (Not Detect); Chlamydophila pneumoniae Not Detected (Not Detect); Coronavirus NL63 Not Detected (Not Detect); Coronavirus OC43 Not Detected (Not Detect); Human Metapneumovirus Not Detected (Not Detect); Human Rhinovirus/Enterovirus Not Detected (Not Detect); Influenza A Subtype 2009 H1 Not Detected (Not Detect); Influenza B Not Detected (Not Detect); Mycoplasma pneumoniae Not Detected (Not Detect); Parainfluenza Virus 1 Not Detected (Not Detect); Parainfluenza Virus 2 Not Detected (Not Detect); Parainfluenza Virus 3 Not Detected (Not Detect); Parainfluenza Virus 4 Not Detected (Not Detect); Respiratory Syncytial Virus Not Detected (Not Detect); SARS-CoV-2 Not Detected (Not Detect)
[2020-09-09] MEDS ORDERED: Naloxone 0.4 MG/ML INJ IVP PRN (17:57)
[2020-09-09] MEDS ORDERED: Ondansetron 4 MG/2 ML VIAL IVP PRN (17:57)
[2020-09-09] MEDS ORDERED: D5% in Water 1,000 ML IVC PRN (18:24)
[2020-09-09] MEDS ORDERED: *HR* Dextrose 50 % in Water (Vial) 50 ML VIAL IVP PRN (18:24)
[2020-09-09] MEDS ORDERED: Dextrose Gel 15 GM/37.5 ML TUBE PO PRN ×2 (18:24)
[2020-09-09] MEDS: Ipratropium/Albuterol Neb 3 ML IH SCH ×2 (18:25→21:44)
[2020-09-09] MEDS: Insulin LISPRO 300 UNITS/3 ML VIAL SUBQ SCH (20:59)
[2020-09-10 03:15] LABS: VBG HCO3 40 mEq/L (21-27); VBG PCO2 66 mmHg (41-51); VBG PO2 152 mmHg (25-50)
[2020-09-10] MEDS: Ipratropium/Albuterol Neb 3 ML IH SCH ×4 (03:22→21:21)
[2020-09-10 03:27] LABS: INR 1.2; Prothrombin Time 14.2 Seconds (9.4-12.1)
[2020-09-10 03:29] LABS: Basophils % 0.3 %; Eosinophils # 0.2 K/mcL (0.0-0.6); Eosinophils % 3.2 %; Hematocrit 36.3 % (37.5-50.1); Hemoglobin 11.3 g/dL (12.9-16.9); Immature Granulocytes % 0.5 % (0-4); Lymphocytes # 1.5 K/mcL (0.6-4.6); Lymphocytes % 24.4 %; Mean Corpuscular HGB Conc 31.1 g/dL (31.6-35.5); Mean Corpuscular Hemoglobin 30.8 pg (28.0-33.3); Mean Corpuscular Volume 98.9 fL (83.0-100.0); Mean Platelet Volume 9.7 fL (9.4-12.4); Monocytes # 0.6 K/mcL (0.0-1.3); Monocytes % 9.2 %; Neutrophils # 3.9 K/mcL (1.6-8.9); Platelet Count 203 K/mcL (140-400); Red Blood Count 3.67 M/mcL (4.19-5.50); Red Cell Distribution Width 14.4 % (11.5-14.5); Segmented Neutrophils % 62.4 %; White Blood Count 6.3 K/mcL (4.3-11.1)
[2020-09-10 03:50] LABS: BUN/Creatinine Ratio 45 (6-26); Blood Urea Nitrogen 19 mg/dL (8-23); Calcium 8.8 mg/dL (8.6-10.3); Carbon Dioxide 40 mEq/L (23-29); Chloride 96 mEq/L (98-107); Glucose 115 mg/dL (70-105); Magnesium 1.2 mg/dL (1.6-2.6); Osmolality,Calculated 293 (280-300); Phosphorous 3.4 mg/dL (2.7-4.5); Sodium 140 mEq/L (136-145); eGFR For African Americans > 60 (> 60); eGFR For Non-African Americans > 60 (> 60)
[2020-09-10] MEDS: Insulin LISPRO 300 UNITS/3 ML VIAL SUBQ SCH ×4 (08:01→22:45)
[2020-09-10] MEDS ORDERED: Perflutren Lipid Microsphere 1.3 ML in 0.9 % Sodium Chloride 8.7 ML IVP PRN (14:23)
[2020-09-10] MEDS ORDERED: Furosemide 40 MG TABLET PO SCH (14:30)
[2020-09-10 14:42] LABS: VBG HCO3 39 mEq/L (21-27); VBG PCO2 76 mmHg (41-51); VBG PH 7.32 pH Units (7.32-7.42); VBG PO2 54 mmHg (25-50)
[2020-09-10] MEDS ORDERED: levoFLOXacin 750 MG/150 ML 750 MG/150 ML BAG IVPB SCH (15:00)
[2020-09-10] MEDS: predniSONE 20 MG TABLET PO SCH (15:03)
[2020-09-10] MEDS: Budesonide/Formoterol 160/4.5 1 PUFF INH IH SCH (21:24)
[2020-09-10] MEDS: Artificial Tears SOLN 15 ML BOTTLE OP SCH (22:39)
[2020-09-11] MEDS: Ipratropium/Albuterol Neb 3 ML IH SCH ×4 (04:14→22:36)
[2020-09-11 06:16] LABS: Basophils % 0.3 %; Hematocrit 35.9 % (37.5-50.1); Hemoglobin 11.1 g/dL (12.9-16.9); Immature Granulocytes % 0.6 % (0-4); Lymphocytes # 0.9 K/mcL (0.6-4.6); Lymphocytes % 15.1 %; Mean Corpuscular HGB Conc 30.9 g/dL (31.6-35.5); Mean Corpuscular Hemoglobin 30.2 pg (28.0-33.3); Mean Corpuscular Volume 97.8 fL (83.0-100.0); Monocytes # 0.3 K/mcL (0.0-1.3); Monocytes % 5.4 %; Neutrophils # 4.8 K/mcL (1.6-8.9); Platelet Count 200 K/mcL (140-400); Red Blood Count 3.67 M/mcL (4.19-5.50); Red Cell Distribution Width 14.1 % (11.5-14.5); Segmented Neutrophils % 78.6 %; White Blood Count 6.2 K/mcL (4.3-11.1)
[2020-09-11 06:22] LABS: VBG HCO3 37 mEq/L (21-27); VBG PCO2 43 mmHg (41-51); VBG PH 7.54 pH Units (7.32-7.42); VBG PO2 173 mmHg (25-50)
[2020-09-11 06:36] LABS: BUN/Creatinine Ratio 52 (6-26); Blood Urea Nitrogen 15 mg/dL (8-23); Calcium 8.5 mg/dL (8.6-10.3); Carbon Dioxide 36 mEq/L (23-29); Chloride 96 mEq/L (98-107); Glucose 167 mg/dL (70-105); Osmolality,Calculated 289 (280-300); Potassium 3.6 mEq/L (3.5-5.1); Sodium 137 mEq/L (136-145); eGFR For African Americans > 60 (> 60); eGFR For Non-African Americans > 60 (> 60)
[2020-09-11] MEDS: Insulin LISPRO 300 UNITS/3 ML VIAL SUBQ SCH ×4 (09:37→20:24)
[2020-09-11] MEDS: predniSONE 20 MG TABLET PO SCH (09:42)
[2020-09-11] MEDS: allopurinoL 300 MG TABLET PO SCH (09:42)
[2020-09-11] MEDS: Furosemide 40 MG/4 ML VIAL IVP SCH (09:42)
[2020-09-11] MEDS: Cefepime HCl 2,000 MG in Water for inj. (sterile) 20 ML IVP SCH ×2 (09:42→15:16)
[2020-09-11] MEDS: Artificial Tears SOLN 15 ML BOTTLE OP SCH ×3 (09:43→20:24)
[2020-09-11] MEDS: Acetaminophen 325 MG TABLET PO PRN ×2 (09:54→16:21)
[2020-09-11] MEDS: Budesonide/Formoterol 160/4.5 1 PUFF INH IH SCH ×2 (10:45→22:36)
[2020-09-12] MEDS: Cefepime HCl 2,000 MG in Water for inj. (sterile) 20 ML IVP SCH ×2 (00:03→08:27)
[2020-09-12] MEDS: Ipratropium/Albuterol Neb 3 ML IH SCH ×4 (03:36→21:41)
[2020-09-12 03:44] LABS: Basophils % 0.3 %; Hematocrit 36.5 % (37.5-50.1); Hemoglobin 11.4 g/dL (12.9-16.9); Immature Granulocytes % 1.1 % (0-4); Lymphocytes % 14.9 %; Mean Corpuscular HGB Conc 31.2 g/dL (31.6-35.5); Mean Corpuscular Hemoglobin 30.6 pg (28.0-33.3); Mean Corpuscular Volume 97.9 fL (83.0-100.0); Mean Platelet Volume 9.2 fL (9.4-12.4); Monocytes # 0.6 K/mcL (0.0-1.3); Monocytes % 8.3 %; Neutrophils # 5.2 K/mcL (1.6-8.9); Platelet Count 196 K/mcL (140-400); Red Blood Count 3.73 M/mcL (4.19-5.50); Segmented Neutrophils % 75.4 %
[2020-09-12 04:03] LABS: BUN/Creatinine Ratio 49 (6-26); Blood Urea Nitrogen 18 mg/dL (8-23); Calcium 8.4 mg/dL (8.6-10.3); Carbon Dioxide 38 mEq/L (23-29); Chloride 94 mEq/L (98-107); Glucose 179 mg/dL (70-105); Magnesium 1.8 mg/dL (1.6-2.6); Osmolality,Calculated 288 (280-300); Potassium 3.5 mEq/L (3.5-5.1); Sodium 136 mEq/L (136-145); eGFR For African Americans > 60 (> 60); eGFR For Non-African Americans > 60 (> 60)
[2020-09-12] MEDS: Insulin LISPRO 300 UNITS/3 ML VIAL SUBQ SCH ×4 (08:24→20:38)
[2020-09-12] MEDS: Budesonide/Formoterol 160/4.5 1 PUFF INH IH SCH ×2 (09:49→21:41)
[2020-09-12] MEDS: Furosemide 40 MG/4 ML VIAL IVP SCH (10:31)
[2020-09-12] MEDS: Artificial Tears SOLN 15 ML BOTTLE OP SCH ×3 (10:31→20:38)
[2020-09-12] MEDS: predniSONE 20 MG TABLET PO SCH (10:34)
[2020-09-12] MEDS: allopurinoL 300 MG TABLET PO SCH (10:34)
[2020-09-12] MEDS ORDERED: Perflutren Lipid Microsphere 1.3 ML in 0.9 % Sodium Chloride 8.7 ML IVP PRN (12:03)
[2020-09-12] MEDS: Sulfamethoxazole/Trimeth DS 1 EACH TABLET PO SCH (20:39)
[2020-09-12] MEDS: Acetaminophen 325 MG TABLET PO PRN (20:48)
[2020-09-13] MEDS: Ipratropium/Albuterol Neb 3 ML IH SCH ×2 (03:45→10:53)
[2020-09-13 06:23] LABS: Basophils % 0.3 %; Eosinophils % 0.1 %; Hematocrit 39.9 % (37.5-50.1); Hemoglobin 12.5 g/dL (12.9-16.9); Immature Granulocytes % 1.7 % (0-4); Lymphocytes # 1.4 K/mcL (0.6-4.6); Lymphocytes % 17.6 %; Mean Corpuscular HGB Conc 31.3 g/dL (31.6-35.5); Mean Corpuscular Hemoglobin 30.9 pg (28.0-33.3); Mean Corpuscular Volume 98.5 fL (83.0-100.0); Mean Platelet Volume 9.2 fL (9.4-12.4); Monocytes # 0.6 K/mcL (0.0-1.3); Monocytes % 7.8 %; Neutrophils # 5.6 K/mcL (1.6-8.9); Platelet Count 202 K/mcL (140-400); Red Blood Count 4.05 M/mcL (4.19-5.50); Red Cell Distribution Width 14.1 % (11.5-14.5); Segmented Neutrophils % 72.5 %; White Blood Count 7.7 K/mcL (4.3-11.1)
[2020-09-13 06:44] LABS: BUN/Creatinine Ratio 58 (6-26); Blood Urea Nitrogen 22 mg/dL (8-23); Calcium 8.7 mg/dL (8.6-10.3); Carbon Dioxide 38 mEq/L (23-29); Chloride 94 mEq/L (98-107); Glucose 204 mg/dL (70-105); Magnesium 1.8 mg/dL (1.6-2.6); Osmolality,Calculated 291 (280-300); Potassium 3.5 mEq/L (3.5-5.1); Sodium 136 mEq/L (136-145); eGFR For African Americans > 60 (> 60); eGFR For Non-African Americans > 60 (> 60)
[2020-09-13] MEDS: Insulin LISPRO 300 UNITS/3 ML VIAL SUBQ SCH ×2 (08:34→12:02)
[2020-09-13] MEDS: Artificial Tears SOLN 15 ML BOTTLE OP SCH (08:34)
[2020-09-13] MEDS: allopurinoL 300 MG TABLET PO SCH (08:34)
[2020-09-13] MEDS: predniSONE 20 MG TABLET PO SCH (08:34)
[2020-09-13] MEDS: Sulfamethoxazole/Trimeth DS 1 EACH TABLET PO SCH (08:34)
[2020-09-13] MEDS: Budesonide/Formoterol 160/4.5 1 PUFF INH IH SCH (10:53)
[2020-09-13 11:28] VITALS: BP 137/68
== END 2020-09-13 16:11 | disposition home health service (06) | DRG 698 ==
LOC: 2ANU 12:46 → EMEROOARM 12:46 → SUATTDRO 17:32 → 2ANU 18:30
PROVIDERS: ADMIT Internal Medicine; ATTEND Family Medicine

== ENCOUNTER 2021-02-24 12:39 | Inpatient (IN) ==
[2021-02-24] MEDS ORDERED: 0.9 % Sodium Chloride 1,000 ML IVC ONE (13:54)
[2021-02-24] MEDS ORDERED: Isovue-370 500 ML BOTTLE IVP ONE (13:56)
[2021-02-24 14:38] LABS: Basophils # 0.1 K/mcL (0.0-0.2); Basophils % 0.9 %; Eosinophils # 0.1 K/mcL (0.0-0.6); Eosinophils % 1.1 %; Hemoglobin 11.7 g/dL (12.9-16.9); Immature Granulocytes % 1.3 % (0-4); Lymphocytes # 2.2 K/mcL (0.6-4.6); Mean Corpuscular HGB Conc 31.6 g/dL (31.6-35.5); Mean Corpuscular Hemoglobin 31.5 pg (28.0-33.3); Mean Corpuscular Volume 99.7 fL (83.0-100.0); Mean Platelet Volume 9.5 fL (9.4-12.4); Monocytes # 0.7 K/mcL (0.0-1.3); Monocytes % 8.6 %; Platelet Count 199 K/mcL (140-400); Red Blood Count 3.71 M/mcL (4.19-5.50); Red Cell Distribution Width 14.2 % (11.5-14.5); Segmented Neutrophils % 61.1 %; White Blood Count 8.2 K/mcL (4.3-11.1)
[2021-02-24 14:42] LABS: INR 1.2; Prothrombin Time 13.7 Seconds (9.4-12.1)
[2021-02-24 14:45] LABS: Activated Partial Thrombo Time 30.4 Seconds (26.0-36.0)
[2021-02-24 14:55] LABS: Alanine Aminotransferase 8 Units/L (7-52); Albumin 3.2 g/dL (3.5-5.7); Alkaline Phosphatase 60 Units/L (34-104); Aspartate Amino Transferase 12 Units/L (13-39); BUN/Creatinine Ratio 70 (6-26); Bilirubin,Total 0.6 mg/dL (0.3-1.0); Blood Urea Nitrogen 31 mg/dL (8-23); Calcium 8.6 mg/dL (8.6-10.3); Carbon Dioxide 38 mEq/L (23-29); Chloride 93 mEq/L (98-107); Globulin 3.1 g/dL (2.4-3.5); Glucose 144 mg/dL (70-105); Lipase 16 Units/L (11-82); Osmolality,Calculated 289 (280-300); Potassium 4.4 mEq/L (3.5-5.1); Sodium 135 mEq/L (136-145); Total Protein 6.3 g/dL (6.4-8.9); Troponin I < 0.03 ng/mL (< 0.04); eGFR For African Americans > 60 (> 60); eGFR For Non-African Americans > 60 (> 60)
[2021-02-24] MEDS ORDERED: *HR* Dextrose 50 % in Water (Vial) 50 ML VIAL IVP PRN (21:05)
[2021-02-24] MEDS ORDERED: D5% in Water 1,000 ML IVC PRN (21:05)
[2021-02-24] MEDS ORDERED: Dextrose Gel 15 GM/37.5 ML TUBE PO PRN ×2 (21:05)
[2021-02-24 21:49] LABS: Hematocrit 37.3 % (37.5-50.1); Hemoglobin 11.7 g/dL (12.9-16.9)
[2021-02-24] MEDS: Pantoprazole 40 MG VIAL IVP SCH (22:00)
[2021-02-25] MEDS: Nystatin POWDER 30 GM BOTTLE TP SCH ×3 (00:26→19:49)
[2021-02-25 02:21] LABS: Hematocrit 39.1 % (37.5-50.1); Hemoglobin 12.6 g/dL (12.9-16.9); Mean Corpuscular HGB Conc 32.2 g/dL (31.6-35.5); Mean Corpuscular Hemoglobin 32.9 pg (28.0-33.3); Mean Corpuscular Volume 102.1 fL (83.0-100.0); Mean Platelet Volume 9.8 fL (9.4-12.4); Platelet Count 183 K/mcL (140-400); Red Blood Count 3.83 M/mcL (4.19-5.50); Red Cell Distribution Width 14.5 % (11.5-14.5); White Blood Count 7.5 K/mcL (4.3-11.1)
[2021-02-25 03:38] LABS: BUN/Creatinine Ratio 58 (6-26); Blood Urea Nitrogen 25 mg/dL (8-23); Calcium 8.5 mg/dL (8.6-10.3); Carbon Dioxide 28 mEq/L (23-29); Chloride 97 mEq/L (98-107); Glucose 164 mg/dL (70-105); Osmolality,Calculated 288 (280-300); Potassium 4.2 mEq/L (3.5-5.1); Sodium 135 mEq/L (136-145); eGFR For African Americans > 60 (> 60); eGFR For Non-African Americans > 60 (> 60)
[2021-02-25] MEDS: Albuterol 2.5 MG/3 ML NEBULIZER IH SCH ×4 (04:18→22:59)
[2021-02-25] MEDS: Pantoprazole 40 MG VIAL IVP SCH ×2 (06:01→16:28)
[2021-02-25] MEDS: Insulin LISPRO 300 UNITS/3 ML VIAL SUBQ SCH ×3 (08:37→17:56)
[2021-02-25] MEDS ORDERED: Albuterol 2.5 MG/3 ML NEBULIZER IH PRN (09:09)
[2021-02-25] MEDS: Ondansetron 4 MG/2 ML VIAL IVP PRN (16:53)
[2021-02-25] MEDS ORDERED: SODIUM CHLORIDE/NAHCO3/KCL/PEG 4,000 ML SOLN.RECON PO ONE (17:00)
[2021-02-25 19:06] LABS: Hematocrit 37.6 % (37.5-50.1); Hemoglobin 12.1 g/dL (12.9-16.9)
[2021-02-25] MEDS: Spironolactone 25 MG TABLET PO SCH (19:49)
[2021-02-25] MEDS ORDERED: Prochlorperazine 10 MG/2 ML VIAL IVP PRN (22:23)
[2021-02-26] MEDS: Albuterol 2.5 MG/3 ML NEBULIZER IH SCH ×4 (04:05→22:37)
[2021-02-26] MEDS: Pantoprazole 40 MG VIAL IVP SCH ×2 (04:51→17:51)
[2021-02-26 06:56] LABS: Hematocrit 33.8 % (37.5-50.1)
[2021-02-26] MEDS: Insulin LISPRO 300 UNITS/3 ML VIAL SUBQ SCH ×3 (08:47→17:59)
[2021-02-26] MEDS ORDERED: Lidocaine -MPF 2% 5 ML VIAL ONE (09:28)
[2021-02-26] MEDS ORDERED: *HR* Succinylcholine 200 MG/10 ML VIAL IVP ONE (09:28)
[2021-02-26] MEDS ORDERED: *HR* Propofol 200 MG/20 ML VIAL IVP ONE (09:31)
[2021-02-26] MEDS ORDERED: Lidocaine HCL 4 ML Topical Solution (Laryng-O-Jet Kit Sterile Pak) TP ONE (09:33)
[2021-02-26] MEDS: Spironolactone 25 MG TABLET PO SCH ×2 (12:57→21:19)
[2021-02-26] MEDS: Nystatin POWDER 30 GM BOTTLE TP SCH ×2 (12:58→21:15)
[2021-02-26] MEDS ORDERED: SODIUM CHLORIDE/NAHCO3/KCL/PEG 4,000 ML SOLN.RECON PO ONE (17:00)
[2021-02-26] MEDS: Ondansetron 4 MG/2 ML VIAL IVP PRN (17:52)
[2021-02-26 18:35] LABS: Hematocrit 34.7 % (37.5-50.1); Hemoglobin 11.2 g/dL (12.9-16.9)
[2021-02-26] MEDS ORDERED: Prochlorperazine 10 MG/2 ML VIAL IVP PRN (20:25)
[2021-02-27] MEDS: Albuterol 2.5 MG/3 ML NEBULIZER IH SCH ×3 (03:13→15:11)
[2021-02-27] MEDS: Pantoprazole 40 MG VIAL IVP SCH (06:24)
[2021-02-27 06:26] LABS: Hematocrit 34.4 % (37.5-50.1); Hemoglobin 11.2 g/dL (12.9-16.9)
[2021-02-27] MEDS ORDERED: Acetaminophen 325 MG TABLET PO ONE (06:38)
[2021-02-27] MEDS ORDERED: Acetaminophen IV 500 MG/50 ML BAG IVPB ONE (06:55)
[2021-02-27] MEDS: Insulin LISPRO 300 UNITS/3 ML VIAL SUBQ SCH ×2 (07:50→11:26)
[2021-02-27] MEDS ORDERED: *HR* HYDROmorphone PF 0.5 MG/0.5 ML SYRINGE IVP PRN (10:11)
[2021-02-27] MEDS ORDERED: Promethazine 6.25 MG in Water for inj. (sterile) 20 ML IVPB PRN (10:11)
[2021-02-27] MEDS ORDERED: *HR* OxyCODONE Immed Rel 5 MG TABLET PO PRN (10:11)
[2021-02-27] MEDS ORDERED: Ondansetron 4 MG/2 ML VIAL IVP PRN (10:11)
[2021-02-27] MEDS: Spironolactone 25 MG TABLET PO SCH (11:20)
[2021-02-27] MEDS: Nystatin POWDER 30 GM BOTTLE TP SCH (11:21)
[2021-02-27 13:07] VITALS: BP 123/80; PULSE 82; TEMP 98
[2021-02-27 15:14] VITALS: O2SAT 95
[2021-02-27] MEDS ORDERED: *HR* Propofol 500 MG/50 ML BOTTLE IVP ONE (15:25)
[2021-02-27] MEDS ORDERED: Lidocaine -MPF 2% 5 ML VIAL SQ ONE (15:25)
== END 2021-02-27 15:26 | disposition home health service (06) | DRG 394 ==
LOC: EMEROOARM 12:39 → 3BNU 12:39 → SUATTDRO 19:42 → 3BNU 20:16
PROVIDERS: ADMIT Internal Medicine; ATTEND Internal Medicine

== ENCOUNTER 2021-08-18 20:15 | Inpatient (IN) ==
[2021-08-18] MEDS ORDERED: methylPREDNISolone 125 MG/2 ML VIAL IVP ONE (20:21)
[2021-08-18] MEDS ORDERED: Albuterol 2.5 MG/3 ML NEBULIZER IH ONE (20:21)
[2021-08-18] MEDS ORDERED: Furosemide 40 MG/4 ML VIAL IVP ONE (20:21)
[2021-08-18] MEDS ORDERED: Ipratropium/Albuterol Neb 3 ML IH ONE (20:21)
[2021-08-18 21:31] LABS: Hematocrit 38.7 % (37.5-50.1); Hemoglobin 12.8 g/dL (12.9-16.9); Mean Corpuscular HGB Conc 33.1 g/dL (31.6-35.5); Mean Corpuscular Hemoglobin 32.4 pg (28.0-33.3); Mean Platelet Volume 8.8 fL (9.4-12.4); Platelet Count 295 K/mcL (140-400); Red Blood Count 3.95 M/mcL (4.19-5.50); Red Cell Distribution Width 14.8 % (11.5-14.5); White Blood Count 15.5 K/mcL (4.3-11.1)
[2021-08-18 21:37] LABS: Bilirubin,Urine Small (Negative); Blood,Urine Large (Negative); Clarity,Urine Turbid (Clear); Color,Urine Yellow (Yellow); Glucose,Urine (UA) Normal (Normal); Ketones,Urine Trace mg/dL (Negative); Leukocyte Esterase,Urine Large (Negative); Nitrite,Urine Negative (Negative); PH,Urine >=9.0 pH Units (5.0-8.0); Protein,Urine >=300 mg/dL (Neg-Trace); Specific Gravity,Urine 1.015 (1.010-1.025)
[2021-08-18 21:40] LABS: Bacteria,Urine Present per hpf (None-Few); Hyaline Casts,Urine Present per lpf (None Seen); Mucus,Urine Many per lpf (None-Few); RBC,Urine Present per hpf (0-3); Squamous Epithelial Cell,Urine Present per hpf (None-Few); WBC,Urine Present per hpf (0-3)
[2021-08-18 21:41] LABS: Renal Epithelial Cells,Urine Present per hpf (None-Few)
[2021-08-18 21:50] LABS: Alanine Aminotransferase 11 Units/L (7-52); Albumin 2.8 g/dL (3.5-5.7); Albumin/Globulin Ratio 0.9 (1.1-2.2); Alkaline Phosphatase 156 Units/L (34-104); Aspartate Amino Transferase 13 Units/L (13-39); BUN/Creatinine Ratio 52 (6-26); Bilirubin,Direct 0.4 mg/dL (0.0-0.2); Bilirubin,Indirect 0.5 mg/dL (0.0-1.0); Bilirubin,Total 0.9 mg/dL (0.3-1.0); Blood Urea Nitrogen 24 mg/dL (8-23); Carbon Dioxide 28 mEq/L (23-29); Chloride 92 mEq/L (98-107); Globulin 3.2 g/dL (2.4-3.5); Glucose 161 mg/dL (70-105); Osmolality,Calculated 280 (280-300); Potassium 4.4 mEq/L (3.5-5.1); Sodium 131 mEq/L (136-145); Troponin I 0.04 ng/mL (< 0.04); eGFR For African Americans > 60 (> 60); eGFR For Non-African Americans > 60 (> 60)
[2021-08-18 21:52] LABS: Lymphocytes # 2.2 K/mcL (0.6-4.6); Monocytes # 0.6 K/mcL (0.0-1.3); Neutrophils # 12.4 K/mcL (1.6-8.9)
[2021-08-18 22:02] LABS: Influenza A PCR Negative (Negative); Influenza B PCR Negative (Negative); Resp. Syncytial Virus PCR Negative (Negative)
[2021-08-18 22:06] LABS: SARS-CoV-2 by PCR (In House) Negative (Negative)
[2021-08-18] MEDS ORDERED: Isovue-370 500 ML BOTTLE IVP ONE (22:51)
[2021-08-18] MEDS ORDERED: cefTRIAXone 1,000 MG in Water for inj. (sterile) 10 ML IVP ONE (22:52)
[2021-08-18] MEDS ORDERED: Azithromycin 250 MG TABLET PO ONE (22:52)
[2021-08-18] MEDS ORDERED: Naloxone 0.4 MG/ML INJ IVP PRN ×2 (23:01→23:02)
[2021-08-18] MEDS ORDERED: Ondansetron 4 MG/2 ML VIAL IVP PRN (23:02)
[2021-08-18] MEDS ORDERED: Acetaminophen 325 MG TABLET PO PRN (23:02)
[2021-08-18] MEDS ORDERED: *HR* Promethazine 25 MG/ML VIAL IM PRN (23:02)
[2021-08-18] MEDS ORDERED: *HR* HYDROcodone/Acet 5/325 mg TABLET PO PRN (23:02)
[2021-08-18] MEDS ORDERED: *HR* OxyCODONE Immed Rel 5 MG TABLET PO PRN (23:02)
[2021-08-18] MEDS ORDERED: Melatonin 3 MG TABLET PO PRN (23:02)
[2021-08-18] MEDS ORDERED: Ringers Solution, Lactated 1,000 ML IVC ONE (23:04)
[2021-08-18] MEDS ORDERED: Azithromycin 500 MG in 0.9 % Sodium Chloride 250 ML IVPB ONE (23:33)
[2021-08-18] MEDS ORDERED: Azithromycin 500 MG in 0.9 % Sodium Chloride 250 ML IVPB SCH (23:45)
[2021-08-18] MEDS ORDERED: Ipratropium/Albuterol Neb 3 ML IH PRN (23:53)
[2021-08-19] MEDS ORDERED: Ringers Solution, Lactated 500 ML IVC ONE ×2 (01:04→05:21)
[2021-08-19 02:03] LABS: Basophils # 0.1 K/mcL (0.0-0.2); Basophils % 0.8 %; Eosinophils % 0.1 %; Hematocrit 39.6 % (37.5-50.1); Hemoglobin 12.5 g/dL (12.9-16.9); Immature Granulocytes % 5.5 % (0-4); Lymphocytes # 0.8 K/mcL (0.6-4.6); Lymphocytes % 4.9 %; Mean Corpuscular HGB Conc 31.6 g/dL (31.6-35.5); Mean Corpuscular Hemoglobin 31.4 pg (28.0-33.3); Mean Corpuscular Volume 99.5 fL (83.0-100.0); Mean Platelet Volume 8.8 fL (9.4-12.4); Monocytes # 0.3 K/mcL (0.0-1.3); Monocytes % 1.6 %; Platelet Count 284 K/mcL (140-400); Red Blood Count 3.98 M/mcL (4.19-5.50); Segmented Neutrophils % 87.1 %; White Blood Count 15.8 K/mcL (4.3-11.1)
[2021-08-19 02:06] LABS: Neutrophils # 13.8 K/mcL (1.6-8.9)
[2021-08-19 02:14] LABS: INR 1.1; Prothrombin Time 12.6 Seconds (9.4-12.1)
[2021-08-19 02:55] LABS: Platelet Estimate Normal (Normal)
[2021-08-19 03:20] LABS: Blood Urea Nitrogen 24 mg/dL (8-23); Carbon Dioxide 27 mEq/L (23-29); Chloride 91 mEq/L (98-107); Potassium 4.8 mEq/L (3.5-5.1); Sodium 131 mEq/L (136-145)
[2021-08-19 03:21] LABS: Alanine Aminotransferase 10 Units/L (7-52); Albumin 2.8 g/dL (3.5-5.7); Albumin/Globulin Ratio 0.8 (1.1-2.2); Alkaline Phosphatase 154 Units/L (34-104); Aspartate Amino Transferase 21 Units/L (13-39); BUN/Creatinine Ratio 53 (6-26); Bilirubin,Total 0.8 mg/dL (0.3-1.0); Calcium 6.9 mg/dL (8.6-10.3); Globulin 3.5 g/dL (2.4-3.5); Glucose 182 mg/dL (70-105); Lactate Dehydrogenase 375 Units/L (140-271); Magnesium 0.5 mg/dL (1.6-2.6); Osmolality,Calculated 281 (280-300); Total Protein 6.3 g/dL (6.4-8.9); eGFR For African Americans > 60 (> 60); eGFR For Non-African Americans > 60 (> 60)
[2021-08-19] MEDS: *HR* Heparin 5,000 UNIT/ML VIAL SQ SCH ×3 (06:59→20:50)
[2021-08-19] MEDS: cefTRIAXone 1,000 MG in Water for inj. (sterile) 10 ML IVP SCH (08:33)
[2021-08-19] MEDS: Furosemide 40 MG/4 ML VIAL IVP SCH (11:13)
[2021-08-19] MEDS: MetroNIDAZOLE 500 MG/100 ML 500 MG/100 ML BAG IVPB SCH ×2 (12:11→15:37)
[2021-08-19 13:00] LABS: RBC,Pleural Fluid < 2000 RBC/mcL
[2021-08-19 13:01] LABS: Appearance of Pleural Fl Clear (Clear)
[2021-08-19 13:24] LABS: Total Protein,Pleural Fluid 3.3 g/dL
[2021-08-19 14:43] LABS: Phosphorous 3.4 mg/dL (2.7-4.5)
[2021-08-19 14:48] LABS: Troponin I 0.07 ng/mL (< 0.04)
[2021-08-19 14:50] LABS: Basophils,Pleural Fluid 0 %; Eosinophils,Pleural Fluid 0 %
[2021-08-19] MEDS ORDERED: Azithromycin 500 MG in 0.9 % Sodium Chloride 250 ML IVPB SCH (23:00)
[2021-08-20] MEDS: MetroNIDAZOLE 500 MG/100 ML 500 MG/100 ML BAG IVPB SCH ×3 (00:22→15:40)
[2021-08-20] MEDS: *HR* Heparin 5,000 UNIT/ML VIAL SQ SCH ×3 (05:47→20:39)
[2021-08-20 06:32] LABS: Basophils # 0.1 K/mcL (0.0-0.2); Basophils % 0.7 %; Hematocrit 37.4 % (37.5-50.1); Hemoglobin 12.4 g/dL (12.9-16.9); Immature Granulocytes % 4.1 % (0-4); Lymphocytes # 2.6 K/mcL (0.6-4.6); Lymphocytes % 19.1 %; Mean Corpuscular HGB Conc 33.2 g/dL (31.6-35.5); Mean Corpuscular Hemoglobin 32.4 pg (28.0-33.3); Mean Corpuscular Volume 97.7 fL (83.0-100.0); Mean Platelet Volume 9.1 fL (9.4-12.4); Monocytes % 7.7 %; Neutrophils # 9.2 K/mcL (1.6-8.9); Platelet Count 243 K/mcL (140-400); Red Blood Count 3.83 M/mcL (4.19-5.50); Red Cell Distribution Width 15.2 % (11.5-14.5); Segmented Neutrophils % 68.4 %; White Blood Count 13.4 K/mcL (4.3-11.1)
[2021-08-20] MEDS: cefTRIAXone 1,000 MG in Water for inj. (sterile) 10 ML IVP SCH (08:46)
[2021-08-20] MEDS: Furosemide 40 MG/4 ML VIAL IVP SCH (08:51)
[2021-08-20 09:02] LABS: BUN/Creatinine Ratio 59 (6-26); Blood Urea Nitrogen 24 mg/dL (8-23); Calcium 6.9 mg/dL (8.6-10.3); Carbon Dioxide 21 mEq/L (23-29); Chloride 98 mEq/L (98-107); Glucose 118 mg/dL (70-105); Magnesium 1.3 mg/dL (1.6-2.6); Osmolality,Calculated 289 (280-300); Phosphorous 3.3 mg/dL (2.7-4.5); Potassium 4.4 mEq/L (3.5-5.1); Sodium 137 mEq/L (136-145); eGFR For African Americans > 60 (> 60); eGFR For Non-African Americans > 60 (> 60)
[2021-08-20] MEDS ORDERED: Acetaminophen 325 MG TABLET PO PRN (12:19)
[2021-08-20] MEDS: Ibuprofen 600 MG TABLET PO PRN (16:58)
[2021-08-21] MEDS: MetroNIDAZOLE 500 MG/100 ML 500 MG/100 ML BAG IVPB SCH ×3 (01:02→16:54)
[2021-08-21 02:35] LABS: Basophils # 0.1 K/mcL (0.0-0.2); Basophils % 0.9 %; Eosinophils % 0.1 %; Hemoglobin 11.7 g/dL (12.9-16.9); Immature Granulocytes % 5.2 % (0-4); Lymphocytes # 1.1 K/mcL (0.6-4.6); Lymphocytes % 12.9 %; Mean Corpuscular HGB Conc 32.5 g/dL (31.6-35.5); Mean Corpuscular Hemoglobin 32.3 pg (28.0-33.3); Mean Corpuscular Volume 99.4 fL (83.0-100.0); Mean Platelet Volume 8.9 fL (9.4-12.4); Monocytes # 0.7 K/mcL (0.0-1.3); Monocytes % 7.7 %; Platelet Count 276 K/mcL (140-400); Red Blood Count 3.62 M/mcL (4.19-5.50); Red Cell Distribution Width 15.1 % (11.5-14.5); Segmented Neutrophils % 73.2 %; White Blood Count 8.8 K/mcL (4.3-11.1)
[2021-08-21 02:38] LABS: Neutrophils # 6.4 K/mcL (1.6-8.9)
[2021-08-21 02:39] LABS: INR 1.1
[2021-08-21 02:58] LABS: BUN/Creatinine Ratio 63 (6-26); Blood Urea Nitrogen 24 mg/dL (8-23); Calcium 6.9 mg/dL (8.6-10.3); Carbon Dioxide 26 mEq/L (23-29); Chloride 98 mEq/L (98-107); Glucose 68 mg/dL (70-105); Magnesium 1.5 mg/dL (1.6-2.6); Osmolality,Calculated 278 (280-300); Phosphorous 2.8 mg/dL (2.7-4.5); Potassium 3.4 mEq/L (3.5-5.1); Sodium 133 mEq/L (136-145); eGFR For African Americans > 60 (> 60); eGFR For Non-African Americans > 60 (> 60)
[2021-08-21 03:03] LABS: Anisocytosis 1+ (Not Present); Platelet Estimate Normal (Normal); Smudge Cells Present (Not Present)
[2021-08-21] MEDS: *HR* Heparin 5,000 UNIT/ML VIAL SQ SCH ×3 (05:40→21:39)
[2021-08-21] MEDS ORDERED: Potassium Chloride Elixir 20 MEQ/15 ML UDC PO ONE (07:29)
[2021-08-21 07:56] LABS: Fluid Source for Cholesterol PLEURAL FLUID
[2021-08-21] MEDS ORDERED: *HR* Dextrose 50 % in Water (Syg) 50 ML SYRINGE ONE (08:03)
[2021-08-21] MEDS: Furosemide 40 MG/4 ML VIAL IVP SCH (08:08)
[2021-08-21] MEDS: Sennosides/Docusate Sodium TABLET PO SCH (08:08)
[2021-08-21] MEDS: Ibuprofen 600 MG TABLET PO PRN (08:24)
[2021-08-21] MEDS ORDERED: cefTRIAXone 2,000 MG in 0.9 % Sodium Chloride Mini Bag 100 ML IVPB SCH (09:00)
[2021-08-21 10:06] LABS: Cholesterol,Body Fluid 53 mg/dL
[2021-08-21] MEDS ORDERED: *HR* Dextrose 50 % in Water (Syg) 50 ML SYRINGE IVP PRN (10:48)
[2021-08-21] MEDS ORDERED: Dextrose Gel 15 GM/37.5 ML TUBE PO PRN ×2 (10:48)
[2021-08-21] MEDS ORDERED: D5% in Water 1,000 ML IVC PRN (10:48)
[2021-08-21] MEDS ORDERED: *HR* FentaNYL (PF) 100 MCG/2 ML VIAL ONE (12:50)
[2021-08-21] MEDS ORDERED: Lidocaine -MPF 2% 5 ML VIAL ONE (12:50)
[2021-08-21] MEDS ORDERED: Lidocaine HCL 4 ML Topical Solution (Laryng-O-Jet Kit Sterile Pak) TP ONE (12:50)
[2021-08-21] MEDS ORDERED: Ondansetron 4 MG/2 ML VIAL ONE (12:50)
[2021-08-21] MEDS ORDERED: *HR* Propofol 200 MG/20 ML VIAL IVP ONE (12:51)
[2021-08-21] MEDS: Artificial Tears SOLN 15 ML BOTTLE BOTH EYES SCH ×3 (13:28→21:40)
[2021-08-21] MEDS: Nitrofurantoin (BID) 100 MG CAPSULE PO SCH (16:54)
[2021-08-21 18:14] LABS: Appearance of Body Fluid Cloudy (Clear); Volume of Body Fluid 5 mL
[2021-08-22] MEDS: MetroNIDAZOLE 500 MG/100 ML 500 MG/100 ML BAG IVPB SCH ×2 (01:27→07:49)
[2021-08-22 04:57] LABS: Basophils # 0.1 K/mcL (0.0-0.2); Basophils % 0.9 %; Eosinophils % 0.2 %; Hemoglobin 12.4 g/dL (12.9-16.9); Immature Granulocytes % 4.8 % (0-4); Lymphocytes # 1.4 K/mcL (0.6-4.6); Lymphocytes % 15.6 %; Mean Corpuscular HGB Conc 31.8 g/dL (31.6-35.5); Mean Corpuscular Volume 100.5 fL (83.0-100.0); Mean Platelet Volume 8.9 fL (9.4-12.4); Monocytes # 0.6 K/mcL (0.0-1.3); Monocytes % 7.3 %; Neutrophils # 6.3 K/mcL (1.6-8.9); Platelet Count 258 K/mcL (140-400); Red Blood Count 3.88 M/mcL (4.19-5.50); Segmented Neutrophils % 71.2 %; White Blood Count 8.8 K/mcL (4.3-11.1)
[2021-08-22 05:09] LABS: BUN/Creatinine Ratio 49 (6-26); Blood Urea Nitrogen 20 mg/dL (8-23); Calcium 7.3 mg/dL (8.6-10.3); Carbon Dioxide 31 mEq/L (23-29); Chloride 97 mEq/L (98-107); Glucose 132 mg/dL (70-105); Magnesium 1.8 mg/dL (1.6-2.6); Osmolality,Calculated 280 (280-300); Phosphorous 2.3 mg/dL (2.7-4.5); Potassium 4.1 mEq/L (3.5-5.1); Sodium 133 mEq/L (136-145); eGFR For African Americans > 60 (> 60); eGFR For Non-African Americans > 60 (> 60)
[2021-08-22] MEDS: *HR* Heparin 5,000 UNIT/ML VIAL SQ SCH ×2 (06:32→12:49)
[2021-08-22] MEDS: Artificial Tears SOLN 15 ML BOTTLE BOTH EYES SCH ×3 (07:45→17:07)
[2021-08-22] MEDS: Nitrofurantoin (BID) 100 MG CAPSULE PO SCH ×2 (07:49→17:11)
[2021-08-22] MEDS: Sennosides/Docusate Sodium TABLET PO SCH (07:49)
[2021-08-22] MEDS: Ibuprofen 600 MG TABLET PO PRN (07:54)
[2021-08-22] MEDS: Furosemide 40 MG TABLET PO SCH ×2 (08:20→17:11)
[2021-08-22] MEDS ORDERED: Dextromethorphan Polistrx(12h) 30 MG/5 ML UDC PO SCH (09:00)
[2021-08-22] MEDS ORDERED: Cyanocobalamin (B-12) 1,000 MCG TABLET PO SCH (09:00)
[2021-08-22] MEDS ORDERED: Spironolactone 25 MG TABLET PO SCH (09:00)
[2021-08-22] MEDS ORDERED: levoFLOXacin 750 MG TABLET PO SCH (09:00)
[2021-08-22] MEDS ORDERED: *HR* Pioglitazone 15 MG TABLET PO SCH (09:00)
[2021-08-22] MEDS ORDERED: metroNIDAZOLE 500 MG TABLET PO SCH (15:00)
[2021-08-22 15:49] VITALS: BP 99/51; PULSE 109; TEMP 98.2; O2SAT 100
== END 2021-08-22 18:37 | disposition home health service (06) | DRG 871 ==
LOC: 2ANU 20:15 → EMEROOARM 20:15 → SUATTDRO 23:12 → 2ANU 08-19 00:33
PROVIDERS: ADMIT Student in an Organized Health Care Education/Training Program; ATTEND Internal Medicine